=== PATIENT | female | born 1965 | race Caucasian/White ===

== ENCOUNTER 2017-06-25 09:47 | Emergency (ER) | payer OTHER ==
[~2017-06-25] VITALS: Ht 167.6 cm; Wt 77.1 kg
--- NOTE | 2017-06-25 09:58 | NUR ---
PRESENTS SELF TO ED FOR RUQ ABDOMINAL PAIN, CONSTANT, RADIATING TO LOWER BACK X 2 DAYS WORST TODAY. PATIENT DENIES VOMITTING, ADMITTED NAUSEA. APPEARS IN NO APPARENT DISTRESS, RESPIRATION EVEN AND UNLABORED. SKIN IS WARM TO TOUCH AND NON DIAPHORETIC. PATIENT IS AFEBRILE. VSS
--- NOTE | 2017-06-25 10:01 | NUR ---
MD BOLANOS AT BEDSIDE
[2017-06-25] MEDS ORDERED: KETOROLAC TROMETHAMINE 15 MG/ML VIAL ONE ×2 (10:07→12:53)
[2017-06-25] MEDS ORDERED: ONDANSETRON HCL/PF 4 MG/2 ML VIAL ONE (10:07)
--- NOTE | 2017-06-25 10:17 | NUR ---
IV ACCESSED TO LAC 20.BLOOD SAMPLE SENT TO LAB
--- NOTE | 2017-06-25 10:17 | NUR ---
URINE SAMPLE COLLECTED
[2017-06-25 10:19] LABS: BASOPHILS % (AUTO) 0.3 % (0.0-2.0); EOSINOPHILS % (AUTO) 0.6 % (0.0-6.0); HEMATOCRIT 43 % (33-45); HEMOGLOBIN 14.1 g/dL (11.5-14.8); LYMPHOCYTES # (AUTO) 2.2 /CMM (0.8-4.8); MEAN CORPUSCULAR HEMOGLOBIN 28 PG (26.0-33.0); MEAN CORPUSCULAR HGB CONC 33 g/dl (31.0-36.0); MEAN CORPUSCULAR VOLUME 84 fL (82-100); MONOCYTES # (AUTO) 0.6 /CMM (0.1-1.30); MONOCYTES % (AUTO) 6.6 % (2.0-12.0); NEUTROPHILS # (AUTO) 5.6 /CMM (1.8-8.9); NEUTROPHILS % (AUTO) 66.5 % (43.0-81.0); PLATELET COUNT (AUTO) 273 /CMM (150-450); RDW COEFFICIENT OF VARIATION 13.8 (11.5-15.0); RED BLOOD CELL COUNT(AUTO) 5.09 MIL/uL (4.0-5.2); WHITE BLOOD COUNT (AUTO) 8.4 K/uL (4.3-11.0)
[2017-06-25 10:21] LABS: APPEARANCE,URINE SL CLOUDY (CLEAR); BILIRUBIN,URINE 1+ (NEGATIVE); BLOOD, URINE NEGATIVE Ery/uL (NEGATIVE); COLOR,URINE YELLOW (YELLOW); KETONES,URINE NEGATIVE (NEGATIVE); LEUKOCYTE ESTERASE ,URINE NEGATIVE (NEGATIVE); NITRITE, URINE NEGATIVE (NEGATIVE); PROTEIN,URINE NEGATIVE (NEGATIVE); UGLUCOSE NEGATIVE (NEGATIVE); UROBILINOGEN,URINE 0.2 EU/dL (0.2)
[2017-06-25 10:27] LABS: CREATININE 0.8 mg/dL (0.6-1.3); POTASSIUM 4.2 mmol/L (3.5-5.1)
[2017-06-25 10:30] LABS: BACTERIA,URINE None seen /HPF (None Seen); RBC,URINE 0-2 /HPF (0-2); SQUAMOUS EPITHELIAL CELL,UR Few /HPF (None Seen); WBC,URINE 0-2 /HPF (0-3)
[2017-06-25] MEDS ORDERED: ONDANSETRON HCL/PF 4 MG/2 ML VIAL IVP ONE (10:30)
[2017-06-25] MEDS ORDERED: IV NS 0.9% 1,000 ML BAG IV ONE (10:30)
[2017-06-25] MEDS ORDERED: KETOROLAC TROMETHAMINE INJ 30 MG/ML VIAL IV ONE ×2 (10:30→13:00)
[2017-06-25 10:31] LABS: URIC ACID CRYSTALS,URINE Rare /HPF (None Seen)
[2017-06-25 10:35] LABS: ALBUMIN 4.3 g/dL (3.4-5.0); BILIRUBIN,TOTAL 0.3 mg/dL (0.2-1.0); TOTAL PROTEIN, SERUM 7.8 g/dL (6.4-8.2)
[2017-06-25 13:01] VITALS: BP 128/56
--- NOTE | 2017-06-25 13:01 | NUR ---
Patient discharged to home in stable condition. Written and verbal after care instructions given. Patient verbalizes understanding of instruction.IV removed. Catheter intact and site benign. Pressure and 4x4 applied to site. No bleeding noted.
== END 2017-06-25 13:02 | disposition home or self-care (01) ==
LOC: ER 09:49
DX: K80.50 Calculus of bile duct without cholangitis or cholecystitis without obstruction (principal); Z88.5 Allergy status to narcotic agent; Z88.1 Allergy status to other antibiotic agents
CPT/HCPCS: 36415; 76705-TC; 80048-TC; 80076-TC; 81000-TC; 83690-TC; 85025-TC; A4606; J1885; J2405; J7030; Z7610

== ENCOUNTER 2021-11-27 12:32 | Inpatient (IN) | payer OTHER ==
[~2021-11-27] VITALS: Ht 160 cm; Wt 90.4 kg
--- NOTE | 2021-11-27 12:42 | NUR ---
BIBRA 889 FROM HOME C/O WORSENING BODY PAIN AND DIARRHEA. +COVID 11/18/21. THE PATIENT IS ALERT AND ORIENTED X3. DENIES SOB. RESPIRATION REGULAR AND UNLABORED. WILL CONTINUE TO MONITOR THE PATIENT.
[2021-11-27] MEDS ORDERED: ONDANSETRON HCL/PF 4 MG/2 ML VIAL IVP ONE (13:00)
[2021-11-27] MEDS ORDERED: IV NS 0.9% 1,000 ML BAG IV ONE (13:00)
[2021-11-27] MEDS ORDERED: ONDANSETRON HCL/PF 4 MG/2 ML VIAL ONE (13:10)
--- NOTE | 2021-11-27 13:13 | NUR ---
JUNIOR ART DIRECTOR AT THE BEDSIDE
--- NOTE | 2021-11-27 13:13 | NUR ---
IV LINE IS ESTABLISHED, BLOOD SPECIMEN COLLECTED AND SENT TO THE LAB. THE LINE IS SALINE LOCKED.
[2021-11-27 13:39] LABS: BASOPHILS % (AUTO) 0.1 % (0.0-2.0); HEMATOCRIT 45 % (33-45); HEMOGLOBIN 14.9 g/dL (11.5-14.8); LYMPHOCYTES # (AUTO) 1.1 K/uL (0.8-4.8); LYMPHOCYTES % (AUTO) 9.7 % (20.0-44.0); MEAN CORPUSCULAR HGB CONC 33 g/dl (31.0-36.0); MEAN CORPUSCULAR VOLUME 90 fL (82-100); MONOCYTES # (AUTO) 0.9 K/uL (0.1-1.30); MONOCYTES % (AUTO) 8.3 % (2.0-12.0); NEUTROPHILS # (AUTO) 8.9 K/uL (1.8-8.9); NEUTROPHILS % (AUTO) 81.9 % (43.0-81.0); PLATELET COUNT (AUTO) 262 K/uL (150-450); RED BLOOD CELL COUNT(AUTO) 4.99 MIL/uL (4.0-5.2); WHITE BLOOD COUNT (AUTO) 10.9 K/uL (4.3-11.0)
[2021-11-27 13:52] LABS: ALANINE AMINOTRANSFERASE 35 U/L (12-78); ALBUMIN 3.5 g/dL (3.4-5.0); ALKALINE PHOSPHATASE 101 U/L (46-116); ASPARTATE AMINOTRANSFERASE 18 U/L (15-37); BILIRUBIN,DIRECT 0.2 mg/dL (0.0-0.2); BILIRUBIN,TOTAL 0.5 mg/dL (0.2-1.0); CALCIUM, SERUM 9.1 mg/dL (8.5-10.1); CARBON DIOXIDE 22 mmol/L (21-32); CHLORIDE 100 mmol/L (98-107); CREATININE 1.1 mg/dL (0.6-1.3); GLUCOSE 110 mg/dL (74-106); LIPASE 55 U/L (73-393); POTASSIUM 3.1 mmol/L (3.5-5.1); SODIUM SERUM 136 mmol/L (136-145); TOTAL PROTEIN, SERUM 8.3 g/dL (6.4-8.2); UREA NITROGEN, BLOOD 17 mg/dL (7-18)
--- NOTE | 2021-11-27 14:01 | NUR ---
URINE COLLECTED AND SENT TO LAB
[2021-11-27 14:22] LABS: BILIRUBIN,URINE SMALL (NEGATIVE); COLOR,URINE YELLOW (YELLOW); LEUKOCYTE ESTERASE ,URINE TRACE (NEGATIVE); NITRITE, URINE NEGATIVE (NEGATIVE); PROTEIN,URINE 30 mg/dl (NEGATIVE); UGLUCOSE NEGATIVE (NEGATIVE); UROBILINOGEN,URINE 0.2 EU/dL (0.2)
[2021-11-27 14:25] LABS: BACTERIA,URINE Few /HPF (None Seen); SQUAMOUS EPITHELIAL CELL,UR Few /HPF (None Seen)
[2021-11-27] MEDS ORDERED: POTASSIUM CHLORIDE 20 MEQ TAB.PRT.SR PO ONE ×2 (14:28→14:30)
[2021-11-27] MEDS ORDERED: KETOROLAC TROMETHAMINE INJ 30 MG/ML VIAL IV ONE (15:30)
[2021-11-27] MEDS ORDERED: PIPERACILLIN /TAZOBACTAM 3.375 G in IV D5W 50 ML IV ONE (15:30)
[2021-11-27] MEDS ORDERED: KETOROLAC TROMETHAMINE INJ 30 MG/ML VIAL ONE (15:39)
--- NOTE | 2021-11-27 16:42 | NUR ---
COVID ANTIGEN SWAB DONE AND SENT TO THE LAB
[2021-11-27] MEDS ORDERED: MORPHINE SULFATE INJ 2 MG/ML DISP.SYRIN IV PRN (17:30)
[2021-11-27] MEDS ORDERED: MAGNESIUM HYDROXIDE 30 ML UDC PO PRN (17:30)
[2021-11-27] MEDS ORDERED: LORAZEPAM INJ 2 MG/ML VIAL IV PRN (17:30)
[2021-11-27] MEDS ORDERED: Z GUARD REMEDY 4 OZ OINT TP PRN (17:30)
[2021-11-27 18:05] LABS: FERRITIN 410 ng/mL (8-388)
--- NOTE | 2021-11-27 18:30 | NUR ---
admiting office is made aware to the patient in transition
--- NOTE | 2021-11-27 18:45 | NUR ---
ROOM 200
[2021-11-27] MEDS: POTASSIUM CL. PREMIX PERIPHER. 50 ML IV SCH ×4 (19:00→22:54)
[2021-11-27] MEDS: PANTOPRAZOLE 40 MG VIAL IV SCH (19:00)
[2021-11-27] MEDS ORDERED: POTASSIUM CL. PREMIX PERIPHER. 50 ML ONE (19:07)
[2021-11-27] MEDS ORDERED: PANTOPRAZOLE 40 MG VIAL ONE (19:07)
[2021-11-27] MEDS: IV NS 0.9% 1,000 ML IV PRN (19:18)
--- NOTE | 2021-11-27 19:46 | NUR ---
REPORT GIVENT TO MICAH
--- NOTE | 2021-11-27 19:58 | NUR ---
TRANSFERRED TO 200 IN STABLE CONDITION
[2021-11-27 20:10] VITALS: BP 120/78
[2021-11-27] MEDS: ENOXAPARIN SODIUM 40 MG/0.4 ML DISP.SYRIN SQ SCH (21:04)
[2021-11-27] MEDS ORDERED: ACETAMINOPHEN 650 MG/SUPP.RECT RC PRN (23:30)
[2021-11-27] MEDS: PIPERACILLIN /TAZOBACTAM 3.375 G in IV D5W 50 ML IV SCH (23:54)
[2021-11-28] MEDS ORDERED: KETOROLAC TROMETHAMINE INJ 30 MG/ML VIAL ONE (00:04)
[2021-11-28] MEDS: KETOROLAC TROMETHAMINE INJ 30 MG/ML VIAL IV PRN ×3 (00:46→20:40)
[2021-11-28] MEDS: PIPERACILLIN /TAZOBACTAM 3.375 G in IV D5W 50 ML IV SCH ×4 (04:18→20:40)
--- NOTE | 2021-11-28 06:50 | NUR ---
RN CLOSING NOTES Patient A&Ox4. Resting in bed at this time. No signs of distress. No covid symptoms. But pt. did c/o abd pain overnight relieved by PRN toradol and pt. still having loose BMs.
[2021-11-28 07:47] LABS: BASOPHILS % (AUTO) 0.1 % (0.0-2.0); EOSINOPHILS % (AUTO) 0.1 % (0.0-6.0); HEMATOCRIT 40 % (33-45); LYMPHOCYTES # (AUTO) 1.3 K/uL (0.8-4.8); LYMPHOCYTES % (AUTO) 18.3 % (20.0-44.0); MEAN CORPUSCULAR HGB CONC 33 g/dl (31.0-36.0); MEAN CORPUSCULAR VOLUME 91 fL (82-100); MONOCYTES # (AUTO) 0.8 K/uL (0.1-1.30); MONOCYTES % (AUTO) 11.2 % (2.0-12.0); NEUTROPHILS # (AUTO) 5.1 K/uL (1.8-8.9); NEUTROPHILS % (AUTO) 70.3 % (43.0-81.0); PLATELET COUNT (AUTO) 276 K/uL (150-450); RED BLOOD CELL COUNT(AUTO) 4.39 MIL/uL (4.0-5.2); WHITE BLOOD COUNT (AUTO) 7.2 K/uL (4.3-11.0)
[2021-11-28 08:09] LABS: CREATININE 1.1 mg/dL (0.6-1.3); MAGNESIUM 2.3 mg/dL (1.8-2.4); PHOSPHORUS 1.6 mg/dL (2.5-4.9); POTASSIUM 3.5 mmol/L (3.5-5.1)
[2021-11-28] MEDS: PANTOPRAZOLE 40 MG VIAL IV SCH (08:14)
[2021-11-28 09:06] LABS: THYROID STIMULATING HORMONE 1.215 uIU/mL (0.358-3.74)
[2021-11-28] MEDS ORDERED: NITR100C15 PO (10:10)
[2021-11-28] MEDS ORDERED: CHOL100062 PO (10:17)
[2021-11-28] MEDS ORDERED: ACET-868 PO (10:17)
[2021-11-28] MEDS ORDERED: ZINC50TA65 PO (10:17)
[2021-11-28] MEDS ORDERED: MULT-447 PO (10:17)
[2021-11-28] MEDS ORDERED: ONDA4TAB11 SL (10:17)
[2021-11-28] MEDS ORDERED: ASCO-352 PO (10:17)
[2021-11-28] MEDS: IV NS 0.9% 1,000 ML IV PRN (11:23)
[2021-11-28] MEDS: POTASSIUM PHOSPHATE MM 7.5 MMOL in IV NS 0.9% 100 ML IV SCH ×2 (11:23→13:44)
--- NOTE | 2021-11-28 11:25 | NUR ---
RN NOTES PHLEB TECH AT BEDSIDE TO DRAW BLOOD.
--- NOTE | 2021-11-28 16:15 | NUR ---
RN NOTES RECEIVED CALL FROM MARIANNA, PATIENT'S MOTHER; PATIENT CURRENTLY SLEEPING AT THIS TIME. WILL CALL AGAIN LATER.
--- NOTE | 2021-11-28 17:52 | NUR ---
RN NOTES PATIENT IS AMBULATORY W/ STEADY GAIT, ABLE TO GO TO THE BATHROOM W/ SBA. IVF CONTINUOUS. BREATHING EVEN AND UNLABORED, TOLERATING ROOM AIR. IV ATB ADMINISTERED ORDERED. SAFETY MEASURES MAINTAINED.
--- NOTE | 2021-11-28 19:10 | NUR ---
MS/RN OPENING NOTE RECEIVED PATIENT RESTING IN BED. AWAKE, ALERT AND ORIENTED X 4. ABLE TO MAKE NEEDS KNOWN. DENIES PAIN AT THIS TIME. CONTINUES ON ROOM SHARRON WITH NO S/SX OF RESPIRATORY DISTRESS NOTED. IV ACCESS TO RIGHT AC #18G INTACT AND PATENT. CONTINUES ON IVF AND IV ABX. CONTINUES ON NPO STATUS FOR BOWEL REST. DENIES NAUSEA OR VOMITING AT THIS TIME. CALL LIGHT WITHIN REACH. ASPIRATION, FALL AND SAFETY PRECAUTIONS MAINTAINED. WILL CONTINUE TO MONITOR.
[2021-11-28 20:00] VITALS: BP 108/58
[2021-11-28] MEDS: ONDANSETRON HCL/PF 4 MG/2 ML VIAL IVP PRN (20:40)
[2021-11-28] MEDS: ENOXAPARIN SODIUM 40 MG/0.4 ML DISP.SYRIN SQ SCH (20:48)
[2021-11-29] VITALS: BP 109/62
[2021-11-29] MEDS: PIPERACILLIN /TAZOBACTAM 3.375 G in IV D5W 50 ML IV SCH ×4 (02:43→20:24)
[2021-11-29] MEDS: KETOROLAC TROMETHAMINE INJ 30 MG/ML VIAL IV PRN ×3 (03:00→21:56)
--- NOTE | 2021-11-29 03:30 | NUR ---
MS/RN NOTE PATIENTS IV INFILTRATED TO RIGHT AC. IV REMOVED WITH TIP INTACT. PRESSURE DRESSING APPLIED. ATTEMPTED IV PLACEMENT X 3. WILL HAVE 2ND NURSE ATTEMPT. WASTED TORADOL DOSE AND UNDONE IN EMAR D/T NO IV ACCESS AT THIS TIME.
--- NOTE | 2021-11-29 04:45 | NUR ---
MS/RN NOTE ATTEMPTED MULTIPLE PERIPHERAL IV PLACEMENTS X MULTIPLE NURSES. ALL UNSUCCESSFUL. PLACED CALL TO [facility] TO SPEAK WITH ON-CALL. AWAITING CALL BACK.
--- NOTE | 2021-11-29 05:15 | NUR ---
MS/RN NOTE BACK WINDER MD GONZALES RETURNED CALL WITH NEW ORDERS FOR MIDLINE PLACEMENT AND CHANGE ROUTE OF ADMINISTRATION OF TORADOL FROM IV TO IM. ORDERS INPUTTED AND CARRIED OUT. NOTIFIED NURSING TREE CLIMBER ZABRINA MORENO OF MIDLINE PLACEMENT.
[2021-11-29] MEDS ORDERED: KETOROLAC TROMETHAMINE INJ 30 MG/ML VIAL IM PRN (05:21)
--- NOTE | 2021-11-29 06:10 | NUR ---
MS/RN CLOSING NOTE PATIENT CURRENTLY SLEEPING IN BED. ALERT AND ORIENTED X 4. ABLE TO MAKE NEEDS KNOWN. DENIES PAIN AT THIS TIME. CONTINUES ON ROOM AIR WITH NO S/SX OF RESPIRATORY DISTRESS NOTED. NO IV ACCESS AT THIS TIME - MD AWARE WITH ORDER FOR MIDLINE IN PLACE. CONTINUES ON ABX. CONTINUES ON NPO STATUS FOR BOWEL REST. DENIES NAUSEA OR VOMITING AT THIS TIME. CALL LIGHT WITHIN REACH. ASPIRATION, FALL AND SAFETY PRECAUTIONS MAINTAINED. WILL ENDORSE PLAN OF CARE TO ONCOMING SHIFT.
[2021-11-29 08:00] VITALS: BP 104/48
--- NOTE | 2021-11-29 08:02 | NUR ---
MS RN OPENING NOTE RECEIVED PATIENT IN BED, ASLEEP. PATIENT ON ROOM AIR WITH NO S/SX OF RESPIRATORY DISTRESS NOTED. NO IV ACCESS AT THIS TIME - MD AWARE WITH ORDER FOR MIDLINE IN PLACE. ON NPO STATUS FOR BOWEL REST. CALL LIGHT WITHIN REACH. ASPIRATION, FALL AND SAFETY PRECAUTIONS MAINTAINED. WILL CONTINUE TO MONITOR PATIENT.
[2021-11-29] MEDS: PANTOPRAZOLE 40 MG VIAL IV SCH (08:24)
[2021-11-29 09:44] LABS: BASOPHILS % (AUTO) 0.2 % (0.0-2.0); EOSINOPHILS % (AUTO) 0.2 % (0.0-6.0); HEMATOCRIT 40 % (33-45); HEMOGLOBIN 12.9 g/dL (11.5-14.8); LYMPHOCYTES # (AUTO) 1.1 K/uL (0.8-4.8); LYMPHOCYTES % (AUTO) 19.6 % (20.0-44.0); MEAN CORPUSCULAR HGB CONC 33 g/dl (31.0-36.0); MEAN CORPUSCULAR VOLUME 91 fL (82-100); MONOCYTES # (AUTO) 0.8 K/uL (0.1-1.30); MONOCYTES % (AUTO) 15.2 % (2.0-12.0); NEUTROPHILS # (AUTO) 3.6 K/uL (1.8-8.9); NEUTROPHILS % (AUTO) 64.8 % (43.0-81.0); PLATELET COUNT (AUTO) 293 K/uL (150-450); RED BLOOD CELL COUNT(AUTO) 4.35 MIL/uL (4.0-5.2); WHITE BLOOD COUNT (AUTO) 5.6 K/uL (4.3-11.0)
[2021-11-29 09:56] LABS: CALCIUM, SERUM 8.5 mg/dL (8.5-10.1); CREATININE 0.9 mg/dL (0.6-1.3); POTASSIUM 3.3 mmol/L (3.5-5.1)
[2021-11-29] MEDS ORDERED: VITAMINS A AND D 56.7 GM TUBE TP PRN (11:00)
[2021-11-29 12:00] VITALS: BP 111/74
[2021-11-29] MEDS: ONDANSETRON HCL/PF 4 MG/2 ML VIAL IVP PRN (12:59)
[2021-11-29 16:00] VITALS: BP 123/76
[2021-11-29] MEDS: ACETAMINOPHEN 325 MG TABLET PO PRN (17:28)
--- NOTE | 2021-11-29 17:28 | NUR ---
MS RN NOTES PATIENT COMPLAINING OF HEADACHE. PRN TYLENOL ADMINISTERED.
--- NOTE | 2021-11-29 19:28 | NUR ---
MS RN CLOSING NOTE PATIENT REMAINS IN BED, AWAKE, A/.O X4. PATIENT ON ROOM AIR WITH NO S/SX OF RESPIRATORY DISTRESS NOTED DURING SHIFT. R HAND IV ACCESS G # 20 AND COURTNEY MIDLINE PRESENT AND INTACT. ON CLEAR LIQUID DIET NOW. PAIN TREATED WITH PRN PAIN MEDICATION. SAFETY PRECAUTIONS IN PLACE; BED IN LOW POSITION AND LOCKED, RAILS UP X2, CALL LIGHT WITHIN REACH. WILL CONTINUE TO MONITOR PATIENT.
[2021-11-29] MEDS: ENOXAPARIN SODIUM 40 MG/0.4 ML DISP.SYRIN SQ SCH (20:28)
[2021-11-30] VITALS: BP 130/74
[2021-11-30] MEDS: PIPERACILLIN /TAZOBACTAM 3.375 G in IV D5W 50 ML IV SCH ×4 (02:01→20:40)
[2021-11-30 04:00] VITALS: BP 141/62
[2021-11-30] MEDS: MAG HYDROX/AL HYDROX/SIMETH 30 ML UDC PO PRN ×2 (04:25→17:15)
[2021-11-30 07:04] VITALS: BP 112/58
--- NOTE | 2021-11-30 07:23 | NUR ---
RN MS NOTE PATIENT NO SIGNIFICANT CHANGES DURING THE SHIFT, PAIN MANAGED WITH TORADOL IV. MAALOX GIVEN FOR ACID REFLUX. SAFETY MEASURES IMPLEMENTED. PATIENT ON RA, TOLERATING WELL. ALL NEEDS MET AND ATTENDED. ALL ORDERS CARRIED OT. ENDORSED TO DAY SHIFT NURSE FOR JUAN.
--- NOTE | 2021-11-30 07:30 | NUR ---
RN NOTE PATIENT RECEIVED IN BED, AWAKE, A/.O X4. PATIENT ON ROOM AIR WITH NO S/SX OF RESPIRATORY DISTRESS NOTED. IV ACCESS COURTNEY MIDLINE G18 PRESENT AND INTACT. ON CLEAR LIQUID DIET NOW. SAFETY PRECAUTIONS IN PLACE; BED IN LOW POSITION AND LOCKED, RAILS UP X2, CALL LIGHT WITHIN REACH. WILL CONTINUE TO MONITOR PATIENT.
[2021-11-30 08:00] VITALS: BP 145/78
[2021-11-30 08:46] LABS: BASOPHILS % (AUTO) 0.2 % (0.0-2.0); EOSINOPHILS % (AUTO) 0.3 % (0.0-6.0); HEMATOCRIT 38 % (33-45); HEMOGLOBIN 12.7 g/dL (11.5-14.8); LYMPHOCYTES # (AUTO) 1.2 K/uL (0.8-4.8); MEAN CORPUSCULAR HGB CONC 34 g/dl (31.0-36.0); MEAN CORPUSCULAR VOLUME 89 fL (82-100); MONOCYTES # (AUTO) 0.8 K/uL (0.1-1.30); MONOCYTES % (AUTO) 15.1 % (2.0-12.0); NEUTROPHILS # (AUTO) 3.3 K/uL (1.8-8.9); NEUTROPHILS % (AUTO) 61.4 % (43.0-81.0); PLATELET COUNT (AUTO) 312 K/uL (150-450); RED BLOOD CELL COUNT(AUTO) 4.26 MIL/uL (4.0-5.2); WHITE BLOOD COUNT (AUTO) 5.4 K/uL (4.3-11.0)
[2021-11-30 09:04] LABS: CALCIUM, SERUM 8.2 mg/dL (8.5-10.1); CREATININE 0.8 mg/dL (0.6-1.3); POTASSIUM 3.3 mmol/L (3.5-5.1)
[2021-11-30] MEDS: ONDANSETRON HCL/PF 4 MG/2 ML VIAL IVP PRN (09:33)
[2021-11-30] MEDS: PANTOPRAZOLE 40 MG VIAL IV SCH (09:33)
[2021-11-30] MEDS: KETOROLAC TROMETHAMINE INJ 30 MG/ML VIAL IV PRN ×2 (10:39→17:15)
[2021-11-30] MEDS: IV NS 0.9% 1,000 ML IV PRN (11:53)
[2021-11-30 12:00] VITALS: BP 119/68
[2021-11-30] MEDS ORDERED: POTASSIUM CHLORIDE 20 MEQ POWDER PACKET PO ONE (12:00)
--- NOTE | 2021-11-30 12:00 | NUR ---
RN NOTE REPORT LOW POTASSIUM 3.3, TO MD LESLIE ATWOOD. MD ORDER THE POTASSIUM TO REPLACED AND PEARL THE DIET TO SOFT DIET. POTASSIUM GIVEN TO PT.
[2021-11-30 15:22] LABS: EOSINOPHILS % (MANUAL) 2 % (0-4); LYMPHOCYTES % (MANUAL) 22 % (16-48); MONOCYTES % (MANUAL) 16 % (0-11.0); NEUTROPHILS % (MANUAL) 60 (42-76)
[2021-11-30 16:00] VITALS: BP 125/74
--- NOTE | 2021-11-30 17:10 | NUR ---
RN NOT PT A/OX4, COMPLAIN OF PAIN 8 OUT OF 10, AND DISCOMFORT,AND INDIGESTION AND BLOATING, PROVIDE TORADOL AND MAALOX. WILL CONTINUE CARE AND MONITOR.
--- NOTE | 2021-11-30 18:11 | NUR ---
MS RN CLOSING NOTE PATIENT REMAINS IN BED, AWAKE, A/.O X4. PATIENT ON ROOM AIR WITH NO S/SX OF RESPIRATORY DISTRESS NOTED DURING SHIFT. COURTNEY MIDLINE PRESENT 18G AND INTACT. ON SOFT DIET NOW. PAIN TREATED WITH PRN PAIN MEDICATION. SAFETY PRECAUTIONS IN PLACE; BED IN LOW POSITION AND LOCKED, RAILS UP X2, CALL LIGHT WITHIN REACH. WILL ENDORSED TO NOC SHIFT.
--- NOTE | 2021-11-30 19:30 | NUR ---
RN opening notes Pt is laying in bed comfortably watching TV. Pt is alert and orientedX4. Respiration is normal in room air. No SOB. No S/S of distress noted. COURTNEY midline is clean, intact and infuisng well NS@ 75 ml/hr. Safety precautions is maintained and call light is within reach. Will continue to monitor.
[2021-11-30] MEDS: ENOXAPARIN SODIUM 40 MG/0.4 ML DISP.SYRIN SQ SCH (21:20)
[2021-12-01] MEDS: ACETAMINOPHEN 325 MG TABLET PO PRN (00:49)
--- NOTE | 2021-12-01 00:55 | NUR ---
RN notes Pt is complaining of headache and requesting tylenol. administered tylenol 650 mg/po/prn as ordered for headache.
[2021-12-01] MEDS: PIPERACILLIN /TAZOBACTAM 3.375 G in IV D5W 50 ML IV SCH ×4 (02:25→20:27)
[2021-12-01 04:00] VITALS: BP 143/81
[2021-12-01 06:22] LABS: BASOPHILS % (AUTO) 0.4 % (0.0-2.0); EOSINOPHILS % (AUTO) 0.2 % (0.0-6.0); HEMATOCRIT 36 % (33-45); HEMOGLOBIN 12.1 g/dL (11.5-14.8); LYMPHOCYTES # (AUTO) 1.4 K/uL (0.8-4.8); LYMPHOCYTES % (AUTO) 24.7 % (20.0-44.0); MEAN CORPUSCULAR HGB CONC 33 g/dl (31.0-36.0); MEAN CORPUSCULAR VOLUME 89 fL (82-100); MONOCYTES # (AUTO) 0.8 K/uL (0.1-1.30); MONOCYTES % (AUTO) 13.9 % (2.0-12.0); NEUTROPHILS # (AUTO) 3.5 K/uL (1.8-8.9); NEUTROPHILS % (AUTO) 60.8 % (43.0-81.0); PLATELET COUNT (AUTO) 285 K/uL (150-450); RED BLOOD CELL COUNT(AUTO) 4.07 MIL/uL (4.0-5.2); WHITE BLOOD COUNT (AUTO) 5.8 K/uL (4.3-11.0)
--- NOTE | 2021-12-01 06:30 | NUR ---
RN closing notes Pt is resting in bed comfortably. Pt is alert and orientedX4. Respiration is normal in room air. No SOB. No S/S of distress noted. COURTNEY midline is clean, intact and infuisng well NS@ 75 ml/hr. Routine meds were given as ordered. Kept Pt clean, dry and comfortable. All needs met and attended. Safety precautions is maintained and call light is within reach. Will endorse to am nurse for JUAN.
[2021-12-01 06:42] LABS: CALCIUM, SERUM 8.1 mg/dL (8.5-10.1); CREATININE 0.8 mg/dL (0.6-1.3); POTASSIUM 3.2 mmol/L (3.5-5.1)
--- NOTE | 2021-12-01 07:19 | NUR ---
RN OPENING NOTE- PT ASLEEP IN BED, EASILY AWAKENED, AOX4. MAKES NEEDS KNOWN, INTERACTIVE. DENIES PAIN AT THIS TIME. NS INFUSING AT 75/HR VIA MIDLINE COURTNEY. SIDE RAILS UP, CALL LIGHT IN REACH, MONITOR/ASSIST
[2021-12-01 08:00] VITALS: BP 143/76
[2021-12-01] MEDS: KETOROLAC TROMETHAMINE INJ 30 MG/ML VIAL IV PRN ×2 (08:31→22:12)
[2021-12-01] MEDS: PANTOPRAZOLE 40 MG VIAL IV SCH (08:31)
[2021-12-01] MEDS: IV NS 0.9% 1,000 ML IV PRN (08:38)
[2021-12-01] MEDS: POTASSIUM CHLORIDE 20 MEQ POWDER PACKET PO SCH ×2 (10:07→11:39)
--- NOTE | 2021-12-01 18:33 | NUR ---
RN CLOSING NOTE- PT AOX4, CALM, INTERACTIVE IN NO DISTRESS, DENIES PAIN. PO INTAKE GOOD, DRINKING FLUIDS, SLEPT QUIETLY AT TIMES THROUGH SHIFT. IVF INFUSING NS AT 75 HR VIA MIDLINE COURTNEY. SIDE RAILS UP, BED LOCKED, CALL LIGHT IN REACH, NEEDS ATTENDED
--- NOTE | 2021-12-01 19:30 | NUR ---
MS RN OPENING RECEIVED PATIENT IN BED. A/OX4. AMBULATING WITH STEADY GAITS IN THE RESTROOM. NO S/S OF APPARENT DISTRESS ON ROOM AIR. PAIN TOLERABLE FOR NOW. IV NS RUNNING AT 75CC/HR. SAFETY IN PLACE. ISOLATION PROTOCOL IN PLACE. WILL CONTINUE WITH PATIENT CARE PLAN.
[2021-12-01] MEDS: MAG HYDROX/AL HYDROX/SIMETH 30 ML UDC PO PRN (19:38)
[2021-12-01 20:00] VITALS: BP 128/75
[2021-12-01] MEDS: ENOXAPARIN SODIUM 40 MG/0.4 ML DISP.SYRIN SQ SCH (20:24)
[2021-12-02] MEDS: PIPERACILLIN /TAZOBACTAM 3.375 G in IV D5W 50 ML IV SCH ×4 (03:00→20:55)
[2021-12-02] MEDS: IV NS 0.9% 1,000 ML IV PRN (03:28)
[2021-12-02 06:50] LABS: CALCIUM, SERUM 8.3 mg/dL (8.5-10.1); CREATININE 0.7 mg/dL (0.6-1.3); POTASSIUM 3.2 mmol/L (3.5-5.1)
[2021-12-02] MEDS: PANTOPRAZOLE 40 MG TABLET.DR PO SCH (07:30)
--- NOTE | 2021-12-02 07:49 | NUR ---
MS RN CLOSING REPORT GIVEN TO EKWOK FOR CONTINUITY OF CARE.
[2021-12-02 08:00] VITALS: BP 167/90
--- NOTE | 2021-12-02 08:00 | NUR ---
ms rn received on bned, awake,alert,oriented x4,not in any form of distress, respirations even and unlabored,no sob noted,denies pain at this time, will monitor patient.
[2021-12-02] MEDS ORDERED: POTASSIUM CHLORIDE 20 MEQ TAB.PRT.SR PO ONE (09:30)
[2021-12-02] MEDS: KETOROLAC TROMETHAMINE INJ 30 MG/ML VIAL IV PRN ×2 (11:41→17:29)
--- NOTE | 2021-12-02 14:50 | NUR ---
ms rn patient went down for ct abscess drain.
[2021-12-02] MEDS ORDERED: NALOXONE PREFILLED SYRINGE 2 MG/2 ML SYRINGE IV ONE (15:30)
[2021-12-02] MEDS ORDERED: MIDAZOLAM HCL 5MG/ML VIAL 25 MG/5 ML VIAL IV ONE (15:30)
--- NOTE | 2021-12-02 17:00 | NUR ---
ms rn came back from procedure,w/ drain draining yellowish/reddish output, deneis pain at this time.
--- NOTE | 2021-12-02 18:52 | NUR ---
ms rn on bed, no distress noted.
--- NOTE | 2021-12-02 19:00 | NUR ---
MS RN OPENING NOTE PT A/O X4 RESTING COMFORTABLY IN BED. SAFETY PRECAUTIONS IN PLACE. NO C/O PAIN AT THIS MOMENT. WILL CONTINUE WITH PLAN OF CARE.
[2021-12-02 20:00] VITALS: BP 119/77
[2021-12-02] MEDS: ENOXAPARIN SODIUM 40 MG/0.4 ML DISP.SYRIN SQ SCH (21:22)
[2021-12-02] MEDS: MAG HYDROX/AL HYDROX/SIMETH 30 ML UDC PO PRN (21:37)
[2021-12-03] MEDS: KETOROLAC TROMETHAMINE INJ 30 MG/ML VIAL IV PRN ×3 (02:10→18:30)
[2021-12-03] MEDS: ONDANSETRON HCL/PF 4 MG/2 ML VIAL IVP PRN ×2 (02:12→18:14)
[2021-12-03] MEDS: PIPERACILLIN /TAZOBACTAM 3.375 G in IV D5W 50 ML IV SCH ×4 (03:42→21:49)
[2021-12-03] MEDS: IV NS 0.9% 1,000 ML IV PRN (03:42)
--- NOTE | 2021-12-03 06:30 | NUR ---
MS RN CLOSING NOTE PT RESTING COMFORTABLY IN BED. NEEDS MET AND MEDICATIONS ADMINISTERED. WILL ENDORSE TO ONCOMING RN FOR JUAN.
--- NOTE | 2021-12-03 07:13 | NUR ---
MS RN OPENING NOTE RECEIVED PATIENT IN BED, ASLEEP. PATIENT IS BREATHING EVENLY AND NONLABORED ON ROOM AIR WITH NO S/SX OF RESPIRATORY DISTRESS NOTED. IV ACCESS TO COURTNEY MIDLINE RUNNING NS @ 75ML/HR. DENIES PAIN OR DISCOMFORT AT THIS TIME. SAFETY MEASURES IN PLACE CALL LIGHT WITHIN REACH. ASPIRATION, FALL AND SAFETY PRECAUTIONS MAINTAINED. WILL CONTINUE TO MONITOR
[2021-12-03] MEDS: PANTOPRAZOLE 40 MG TABLET.DR PO SCH (07:40)
[2021-12-03] MEDS: ACETAMINOPHEN 325 MG TABLET PO PRN ×2 (07:40→22:28)
[2021-12-03 08:00] VITALS: BP 134/73
[2021-12-03] MEDS ORDERED: HYDROMORPHONE 1 MG/1 ML DISP.SYRIN IV PRN (11:30)
--- NOTE | 2021-12-03 18:38 | NUR ---
MS RN CLOSING NOTE PATIENT IN BED, ASLEEP. PATIENT IS BREATHING EVENLY AND NONLABORED ON ROOM AIR WITH NO S/SX OF RESPIRATORY DISTRESS NOTED. IV ACCESS TO COURTNEY MIDLINE RUNNING NS @ 75ML/HR. DENIES PAIN OR DISCOMFORT AT THIS TIME. ALL MEDICATIONS GIVEN ORDERED, PAIN MEDICATION GIVEN NEEDED VITALS MAINTAINED WNL. NO DRAINAGE NOTED. SAFETY MEASURES IN PLACE CALL LIGHT WITHIN REACH. ASPIRATION, FALL AND SAFETY PRECAUTIONS MAINTAINED. BED LOW LOCKED AND CALL LIGHT WITHIN REACH WILL ENDORSE TO ONCOMING SHIFT
[2021-12-03 20:00] VITALS: BP 134/75
[2021-12-03] MEDS: ENOXAPARIN SODIUM 40 MG/0.4 ML DISP.SYRIN SQ SCH (21:48)
[2021-12-03] MEDS: MAG HYDROX/AL HYDROX/SIMETH 30 ML UDC PO PRN (21:49)
[2021-12-04] MEDS: PIPERACILLIN /TAZOBACTAM 3.375 G in IV D5W 50 ML IV SCH ×4 (03:18→20:52)
[2021-12-04 04:00] VITALS: BP 133/61
[2021-12-04] MEDS: KETOROLAC TROMETHAMINE INJ 30 MG/ML VIAL IV PRN ×2 (05:05→22:09)
--- NOTE | 2021-12-04 06:30 | NUR ---
MS RN CLOSING NOTE PT RESTING COMFORTABLY IN BED. NEEDS MET AND MEDICATIONS ADMINISTERED. WILL ENDORSE TO ONCOMING RN FOR JUAN
[2021-12-04 06:42] LABS: BASOPHILS % (AUTO) 0.3 % (0.0-2.0); EOSINOPHILS % (AUTO) 1.6 % (0.0-6.0); HEMATOCRIT 35 % (33-45); HEMOGLOBIN 11.7 g/dL (11.5-14.8); LYMPHOCYTES # (AUTO) 1.7 K/uL (0.8-4.8); LYMPHOCYTES % (AUTO) 32.2 % (20.0-44.0); MEAN CORPUSCULAR HGB CONC 33 g/dl (31.0-36.0); MEAN CORPUSCULAR VOLUME 91 fL (82-100); MONOCYTES # (AUTO) 0.7 K/uL (0.1-1.30); MONOCYTES % (AUTO) 13.2 % (2.0-12.0); NEUTROPHILS # (AUTO) 2.8 K/uL (1.8-8.9); NEUTROPHILS % (AUTO) 52.7 % (43.0-81.0); PLATELET COUNT (AUTO) 321 K/uL (150-450); RED BLOOD CELL COUNT(AUTO) 3.85 MIL/uL (4.0-5.2); WHITE BLOOD COUNT (AUTO) 5.3 K/uL (4.3-11.0)
[2021-12-04 07:20] LABS: CALCIUM, SERUM 8.3 mg/dL (8.5-10.1); CREATININE 0.8 mg/dL (0.6-1.3); POTASSIUM 3.1 mmol/L (3.5-5.1)
[2021-12-04 08:00] VITALS: BP 139/72
--- NOTE | 2021-12-04 08:00 | NUR ---
RN NOTE PT IN COMFORTABLE POSITION. NO DISTRESS NOTED. IV PRESENT AND FLUSHES WELL. WILL CONTINUE TO MONITOR.
[2021-12-04] MEDS: PANTOPRAZOLE 40 MG TABLET.DR PO SCH (08:35)
[2021-12-04] MEDS: MAG HYDROX/AL HYDROX/SIMETH 30 ML UDC PO PRN (08:35)
[2021-12-04] MEDS ORDERED: SIMETHICONE SUSP 40 MG/0.6 ML BOTTLE PO PRN (09:00)
[2021-12-04] MEDS: SIMETHICONE 80 MG TAB.CHEW PO PRN ×2 (09:33→14:13)
[2021-12-04] MEDS: POTASSIUM CHLORIDE 20 MEQ TAB.PRT.SR PO SCH (11:21)
[2021-12-04] MEDS: ACETAMINOPHEN 325 MG TABLET PO PRN (13:05)
[2021-12-04] MEDS: ONDANSETRON HCL/PF 4 MG/2 ML VIAL IVP PRN (14:12)
[2021-12-04 16:00] VITALS: BP 115/64
--- NOTE | 2021-12-04 18:58 | NUR ---
RN NOTE PT IN COMFORTABLE POSITION. NO DISTRESS NOTED. IV PRESENT AND FLUSHES WELL. AMBULATES WITH WALKER ASSIST. WILL ENDORSE TO NIGHT RN FOR JUAN.
--- NOTE | 2021-12-04 19:30 | NUR ---
MS RN OPENING NOTE RECEIVED PATIENT AWAKE IN BED. PATIENT IS BREATHING EVENLY AND NONLABORED. PT STABLE ON ROOM AIR. NO SOB OR S/SX OF RESPIRATORY DISTRESS NOTED. IV ACCESS TO COURTNEY MIDLINE RUNNING NS @ 75ML/HR. DENIES PAIN OR DISCOMFORT AT THIS TIME. SAFETY PRECAUTIONS IN PLACE. BED IN LOWEST LOCKED POSITION, HOB ELEVATED, SIDE RAILS UP X2, AND CALL LIGHT AND TABLE WITHIN REACH. WILL CONTINUE WITH PLAN OF CARE.
[2021-12-04 20:00] VITALS: BP 126/67
[2021-12-04] MEDS: ENOXAPARIN SODIUM 40 MG/0.4 ML DISP.SYRIN SQ SCH (20:50)
--- NOTE | 2021-12-04 22:09 | NUR ---
RN NOTE PT COMPLAINED OF PAIN 6/10 IN THE ABDOMEN. ADMINISTERED TORADOL 15 MG FOR MODERATE PAIN ORDERED. VSS. WILL CONTINUE TO MONITOR.
[2021-12-05] MEDS: PIPERACILLIN /TAZOBACTAM 3.375 G in IV D5W 50 ML IV SCH ×4 (03:12→20:04)
[2021-12-05 04:00] VITALS: BP 133/69
--- NOTE | 2021-12-05 06:40 | NUR ---
MS RN CLOSING NOTE PATIENT AWAKE IN BED. PATIENT IS BREATHING EVENLY AND NONLABORED. PT STABLE ON ROOM AIR. NO SOB OR S/SX OF RESPIRATORY DISTRESS NOTED. IV ACCESS TO COURTNEY MIDLINE RUNNING NS @ 75ML/HR. DENIES PAIN OR DISCOMFORT AT THIS TIME. ALL NEEDS MET AT THIS TIME. ALL DUE MEDS GIVEN. SAFETY PRECAUTIONS IN PLACE AT ALL TIMES. BED IN LOWEST LOCKED POSITION, HOB ELEVATED, SIDE RAILS UP X2, AND CALL LIGHT AND TABLE WITHIN REACH. WILL ENDORSE TO ONCOMING NURSE FOR JUAN.
[2021-12-05] MEDS: IV NS 0.9% 1,000 ML IV PRN (07:04)
[2021-12-05] MEDS: PANTOPRAZOLE 40 MG TABLET.DR PO SCH (07:22)
[2021-12-05] MEDS: KETOROLAC TROMETHAMINE INJ 30 MG/ML VIAL IV PRN ×4 (07:23→23:14)
[2021-12-05 08:00] VITALS: BP 130/73
[2021-12-05] MEDS: POTASSIUM CHLORIDE 20 MEQ TAB.PRT.SR PO SCH (08:01)
[2021-12-05] MEDS: ONDANSETRON HCL/PF 4 MG/2 ML VIAL IVP PRN ×2 (14:17→22:09)
[2021-12-05] MEDS: SIMETHICONE 80 MG TAB.CHEW PO PRN ×2 (14:17→22:06)
--- NOTE | 2021-12-05 19:18 | NUR ---
RN OPENING NOTES RECEIVED PT IN BED, AWAKE. AOx4, ABLE TO MAKE NEEDS KNOWN. ON RA AND TOLERATING WELL. NO SOB NOTED. NO S/SX OF RESPIRATORY DISTRESS NOTED. IV ACCES IN COURTNEY MIDLINE RUNNING NS @ 75 ML/HR. SAFETY PRECAUTIONS IN PLACE: BED IN LOWEST, LOCKED POSITION, BRAKES ON, AND SIDERAILS UPx2. TABLE AND CALL LIGHT WITHIN REACH. WILL CONTINUE TO MONITOR.
[2021-12-05 20:00] VITALS: BP 127/61
[2021-12-05] MEDS: ENOXAPARIN SODIUM 40 MG/0.4 ML DISP.SYRIN SQ SCH (20:03)
[2021-12-06] MEDS: PIPERACILLIN /TAZOBACTAM 3.375 G in IV D5W 50 ML IV SCH ×2 (02:40→07:56)
[2021-12-06] MEDS: ACETAMINOPHEN 325 MG TABLET PO PRN (05:24)
[2021-12-06] MEDS: PANTOPRAZOLE 40 MG TABLET.DR PO SCH (06:40)
--- NOTE | 2021-12-06 06:56 | NUR ---
RN CLOSING NOTES PT IN BED, ASLEEP, AWAKENS TO VERBAL STIMULI. AOx4, ABLE TO MAKE NEEDS KNOWN. ON RA AND TOLERATING WELL. NO SOB NOTED. NO S/SX OF RESPIRATORY DISTRESS NOTED. IV ACCES IN COURTNEY MIDLINE RUNNING NS @ 75 ML/HR. ALL NEEDS MET. PT KEPT CLEAN AND DRY. TREATED PAIN THROUGHOUT SHIFT. SAFETY PRECAUTIONS IN PLACE: BED IN LOWEST, LOCKED POSITION, BRAKES ON, AND SIDERAILS UPx2. TABLE AND CALL LIGHT WITHIN REACH. WILL ENDORSE TO ONCOMING SHIFT FOR JUAN.
--- NOTE | 2021-12-06 07:30 | NUR ---
PT RECEIVED RESTING COMFORTABLY IN BED. NO S/S OR C/O PAIN OR DISTRESS NOTED. SIDE RAILS UP X2, CALL LIGHT LEFT WITHIN REACH. WILL CONTINUE PLAN OF CARE.
[2021-12-06] MEDS: KETOROLAC TROMETHAMINE INJ 30 MG/ML VIAL IV PRN ×2 (07:55→18:45)
[2021-12-06] MEDS: ONDANSETRON HCL/PF 4 MG/2 ML VIAL IVP PRN ×2 (07:56→18:45)
[2021-12-06 08:33] VITALS: BP 143/76
--- NOTE | 2021-12-06 10:36 | NUR ---
Pt. requested SSDI information. SW provided pt. with instructions on how to apply.
[2021-12-06] MEDS: LIDOCAINE 5% (PATCH) 1 EA PATCH TP SCH (13:45)
[2021-12-06] MEDS: CEFTRIAXONE 2 G in IV D5W 100 ML IV SCH (14:00)
[2021-12-06 15:57] VITALS: BP 137/71
[2021-12-06] MEDS: SIMETHICONE 80 MG TAB.CHEW PO PRN (18:45)
--- NOTE | 2021-12-06 19:20 | NUR ---
MS/RN OPENING NOTE RECEIVED PATIENT RESTING IN BED. AWAKE, ALERT AND ORIENTED X 4. ABLE TO MAKE NEEDS KNOWN. DENIES PAIN AT THIS TIME. CONTINUES ON ROOM AIR WITH NO S/SX OF RESPIRATORY DISTRESS NOTED. IV ACCESS TO LEFT UPPER ARM MIDLINE #18G INTACT AND PATENT. CONTINUES ON IVF NS @ 75ML/HR. CONTINUES ON IV ABX. CONTINUES ON SOFT DIET WITH PATIENT TOLERATING WELL. CALL LIGHT WITHIN REACH. ASPIRATION, FALL AND SAFETY PRECAUTIONS MAINTAINED. WILL CONTINUE TO MONITOR.
--- NOTE | 2021-12-06 19:22 | NUR ---
CHANGE OF SHIFT REPORT PT RESTING COMFORTABLY IN BED. NO S/S OR C/O PAIN OR DISTRESS NOTED. SIDE RAILS UP X2, CALL LIGHT LEFT WITHIN REACH. NO SIGNIFICANT CHANGES SINCE PREVIOUS SHIFT. WILL GIVE REPORT TO DERICK MARIN.
[2021-12-06 20:00] VITALS: BP 125/73
[2021-12-06] MEDS: ENOXAPARIN SODIUM 40 MG/0.4 ML DISP.SYRIN SQ SCH (20:26)
[2021-12-07] MEDS: KETOROLAC TROMETHAMINE INJ 30 MG/ML VIAL IV PRN ×3 (02:54→20:17)
--- NOTE | 2021-12-07 06:10 | NUR ---
MS/RN CLOSING NOTE PATIENT CURRENTLY SLEEPING IN BED. ALERT AND ORIENTED X 4. ABLE TO MAKE NEEDS KNOWN. DENIES PAIN AT THIS TIME. CONTINUES ON ROOM AIR WITH NO S/SX OF RESPIRATORY DISTRESS NOTED. IV ACCESS TO LEFT UPPER ARM MIDLINE #18G INTACT AND PATENT. CONTINUES ON IVF NS @ 75ML/HR. CONTINUES ON IV ABX. CONTINUES ON SOFT DIET WITH PATIENT TOLERATING WELL. CALL LIGHT WITHIN REACH. ASPIRATION, FALL AND SAFETY PRECAUTIONS MAINTAINED. WILL ENDORSE PLAN OF CARE TO ONCOMING SHIFT.
--- NOTE | 2021-12-07 07:25 | NUR ---
RN OPENING NOTES PATIENT AWAKE IN BED RESTING, A/O X4. NO S/S OF PAIN NOTED AT THIS TIME. ON ROOM AIR, NO DISTRESS OR SHORTNESS OF BREATH NOTED. IV ACCESS COURTNEY MIDLINE, INTACT, PATENT AND FLUSHING WELL. FALL AND SAFETY MEASURES IN PLACE, BED ALARM ON, BED IN LOW AND LOCK POSITION, CALL LIGHT AND TABLE WITHIN EASY REACH, SIDE RAILS UP X2. WILL CONTINUE TO MONITOR.
[2021-12-07 08:00] VITALS: BP 138/72
[2021-12-07] MEDS: PANTOPRAZOLE 40 MG TABLET.DR PO SCH (08:57)
[2021-12-07] MEDS: LIDOCAINE 5% (PATCH) 1 EA PATCH TP SCH (12:48)
[2021-12-07] MEDS: CEFTRIAXONE 2 G in IV D5W 100 ML IV SCH (12:48)
[2021-12-07] MEDS: MAG HYDROX/AL HYDROX/SIMETH 30 ML UDC PO PRN (14:25)
[2021-12-07] MEDS: ACETAMINOPHEN 325 MG TABLET PO PRN (15:45)
[2021-12-07 16:00] VITALS: BP 116/69
[2021-12-07] MEDS: SIMETHICONE 80 MG TAB.CHEW PO PRN (16:14)
[2021-12-07] MEDS: ONDANSETRON HCL/PF 4 MG/2 ML VIAL IVP PRN (18:15)
--- NOTE | 2021-12-07 19:14 | NUR ---
RN CLOSING NOTES PATIENT AWAKE IN BED RESTING, A/O X4. NO S/S OF PAIN NOTED AT THIS TIME. ON ROOM AIR, NO DISTRESS OR SHORTNESS OF BREATH NOTED. IV ACCESS COURTNEY MIDLINE, INTACT, PATENT AND FLUSHING WELL. FALL AND SAFETY MEASURES IN PLACE, BED ALARM ON, BED IN LOW AND LOCK POSITION, CALL LIGHT AND TABLE WITHIN EASY REACH, SIDE RAILS UP X2. WILL ENDORSE TO [employer] SQL DEVELOPER.
[2021-12-07 20:00] VITALS: BP 125/71
[2021-12-07] MEDS: ENOXAPARIN SODIUM 40 MG/0.4 ML DISP.SYRIN SQ SCH (20:24)
[2021-12-07] MEDS: IV NS 0.9% 1,000 ML IV PRN (20:25)
[2021-12-08] MEDS: KETOROLAC TROMETHAMINE INJ 30 MG/ML VIAL IV PRN ×3 (04:30→20:51)
--- NOTE | 2021-12-08 06:28 | NUR ---
MS/RN NOTE SPOKE WITH RADIOLOGY TO CONFIRM CT CHEST/ABDOMEN WITHOUT CONTRAST ORDER. RADIOLOGY STATES IT WILL BE DONE TODAY.
--- NOTE | 2021-12-08 07:26 | NUR ---
MS RN OPENING NOTES RECEIVED PATIENT IN BED, AWAKE, A/O X4, VERBALLY RESPONSIVE. NO SIGNS OF ACUTE DISTRESS NOTED. ON ROOM AIR, NO SOB NOTED. NO C/O PAIN OR DISCOMFORT AT THIS TIME. IV ACCESS ON COURTNEY MIDLINE #18G INTACT AND PATENT WITH NS @75ML RUNNING. ISOLATION PRECAUTION OBSERVED. SAFETY MEASURES IN PLACE. BED LOCKED AND IN LOWEST POSITION, SR UP X2, CALL LIGHT PLACED WITHIN EASY REACH. WILL CONTINUE TO MONITOR.
[2021-12-08] MEDS: PANTOPRAZOLE 40 MG TABLET.DR PO SCH (07:57)
[2021-12-08 08:00] VITALS: BP 129/76
[2021-12-08 08:08] LABS: BASOPHILS % (AUTO) 0.3 % (0.0-2.0); CALCIUM, SERUM 9.5 mg/dL (8.5-10.1); CREATININE 0.9 mg/dL (0.6-1.3); EOSINOPHILS % (AUTO) 1.9 % (0.0-6.0); HEMATOCRIT 38 % (33-45); HEMOGLOBIN 12.5 g/dL (11.5-14.8); LYMPHOCYTES # (AUTO) 2.4 K/uL (0.8-4.8); LYMPHOCYTES % (AUTO) 32.7 % (20.0-44.0); MAGNESIUM 2.4 mg/dL (1.8-2.4); MEAN CORPUSCULAR HGB CONC 33 g/dl (31.0-36.0); MEAN CORPUSCULAR VOLUME 92 fL (82-100); MONOCYTES # (AUTO) 0.7 K/uL (0.1-1.30); NEUTROPHILS % (AUTO) 55.1 % (43.0-81.0); PHOSPHORUS 2.6 mg/dL (2.5-4.9); PLATELET COUNT (AUTO) 343 K/uL (150-450); POTASSIUM 3.6 mmol/L (3.5-5.1); RED BLOOD CELL COUNT(AUTO) 4.15 MIL/uL (4.0-5.2); WHITE BLOOD COUNT (AUTO) 7.2 K/uL (4.3-11.0)
--- NOTE | 2021-12-08 09:38 | NUR ---
RN NOTES PATIENT PICKED-UP FOR CT SCAN OF CHEST/ABDOMEN.
--- NOTE | 2021-12-08 10:00 | NUR ---
RN NOTES PATINE BACK FROM CT SCAN.IN STABLE CONDITION.
[2021-12-08] MEDS: ONDANSETRON HCL/PF 4 MG/2 ML VIAL IVP PRN (11:26)
[2021-12-08] MEDS: LIDOCAINE 5% (PATCH) 1 EA PATCH TP SCH (11:26)
[2021-12-08] MEDS: CEFTRIAXONE 2 G in IV D5W 100 ML IV SCH (12:40)
[2021-12-08] MEDS: SIMETHICONE 80 MG TAB.CHEW PO PRN ×2 (18:46→20:51)
--- NOTE | 2021-12-08 18:53 | NUR ---
MS RN CLOSING NOTES PATIENT IN BED, AWAKE, A/O X4, VERBALLY RESPONSIVE. NO SIGNS OF ACUTE DISTRESS NOTED. REMAINS ON ROOM AIR, NO SOB NOTED. IV ACCESS ON COURTNEY MIDLINE #18G INTACT AND PATENT WITH NS @75ML RUNNING. ALL DUE MEDS GIVEN ORDERED. MEDICATED FOR PAIN NEEDED. ISOLATION PRECAUTION OBSERVED. SAFETY MEASURES IN PLACE. BED LOCKED AND IN LOWEST POSITION, SR UP X2, CALL LIGHT PLACED WITHIN EASY REACH. WILL ENDORSE TO NEXT SHIFT.
[2021-12-08 20:00] VITALS: BP 137/75
[2021-12-08] MEDS: MAG HYDROX/AL HYDROX/SIMETH 30 ML UDC PO PRN (20:50)
[2021-12-08] MEDS: ENOXAPARIN SODIUM 40 MG/0.4 ML DISP.SYRIN SQ SCH (20:52)
[2021-12-09] MEDS: KETOROLAC TROMETHAMINE INJ 30 MG/ML VIAL IV PRN ×3 (05:33→21:57)
[2021-12-09] MEDS: SIMETHICONE 80 MG TAB.CHEW PO PRN ×2 (05:33→13:10)
--- NOTE | 2021-12-09 06:32 | NUR ---
MS RN NOTES AWAKE & RESPONSIVE. NOT IN ANY DISTRESS. NO SOB NOTED. DENIES ANY PAIN OR DISCOMFORT AT THIS TIME. WITH IV-HL PATENT & INTACT. MONITORED ACCORDINGLY. CALL LIGHT WITHIN REACH. BED IN LOWEST POSITION. SR UP X 2 FOR SAFETY. WILL ENDORSE TO NEXT SHIFT.
[2021-12-09 06:53] LABS: BASOPHILS # (AUTO) 0.1 K/uL (0.0-0.2); BASOPHILS % (AUTO) 0.6 % (0.0-2.0); EOSINOPHILS % (AUTO) 1.1 % (0.0-6.0); HEMATOCRIT 37 % (33-45); HEMOGLOBIN 12.3 g/dL (11.5-14.8); LYMPHOCYTES % (AUTO) 20.1 % (20.0-44.0); MEAN CORPUSCULAR HGB CONC 34 g/dl (31.0-36.0); MEAN CORPUSCULAR VOLUME 92 fL (82-100); MONOCYTES # (AUTO) 0.9 K/uL (0.1-1.30); MONOCYTES % (AUTO) 9.6 % (2.0-12.0); NEUTROPHILS # (AUTO) 6.7 K/uL (1.8-8.9); NEUTROPHILS % (AUTO) 68.6 % (43.0-81.0); PLATELET COUNT (AUTO) 341 K/uL (150-450); RED BLOOD CELL COUNT(AUTO) 3.99 MIL/uL (4.0-5.2); WHITE BLOOD COUNT (AUTO) 9.8 K/uL (4.3-11.0)
[2021-12-09 06:56] LABS: CALCIUM, SERUM 8.7 mg/dL (8.5-10.1); CREATININE 0.9 mg/dL (0.6-1.3); MAGNESIUM 2.1 mg/dL (1.8-2.4); PHOSPHORUS 2.3 mg/dL (2.5-4.9); POTASSIUM 3.5 mmol/L (3.5-5.1)
--- NOTE | 2021-12-09 07:30 | NUR ---
ms rn received on bed, awake,alert,oriented x4,not in any form of distress, respirations even and unlabored,no sob noted, lungs are clear,abdomen soft,positive bowel sounds, bony pain at this time, s/p perianal surgery w/ drain, no output noted.will monitor patient's condition.
[2021-12-09 08:00] VITALS: BP 145/74
--- NOTE | 2021-12-09 09:30 | NUR ---
ms pelaez breakfast served,due meds given tolerated well.
[2021-12-09] MEDS ORDERED: K PHOS NEUTRAL 250 MG TABLET PO ONE (10:00)
[2021-12-09] MEDS: PANTOPRAZOLE 40 MG TABLET.DR PO SCH (10:20)
[2021-12-09] MEDS: LIDOCAINE 5% (PATCH) 1 EA PATCH TP SCH (13:04)
[2021-12-09] MEDS: CEFTRIAXONE 2 G in IV D5W 100 ML IV SCH (13:05)
[2021-12-09] MEDS: MAG HYDROX/AL HYDROX/SIMETH 30 ML UDC PO PRN (13:10)
--- NOTE | 2021-12-09 18:30 | NUR ---
ms rn om bed, no distress noted.
--- NOTE | 2021-12-09 19:35 | NUR ---
RN NOTES Received patient awake on her bed, a/ox4, ambulate with walker, denies pain at this time no SOB, call light within reach, siderailsupx2, with left flank accordion drainage-minimal output, call light within reach, siderailsupx2, will continue to monitor
[2021-12-09] MEDS: ENOXAPARIN SODIUM 40 MG/0.4 ML DISP.SYRIN SQ SCH (19:55)
[2021-12-09 20:00] VITALS: BP 128/80
--- NOTE | 2021-12-09 21:34 | NUR ---
RN NOTES SPOKE TO NED GONZALES-ALEXIS AND GO A N ORDER OF TORADOL 15MG IV PRN , ORDER NOTED AND CARRIED OUT
[2021-12-10 06:39] LABS: BASOPHILS % (AUTO) 0.7 % (0.0-2.0); EOSINOPHILS % (AUTO) 1.7 % (0.0-6.0); HEMATOCRIT 38 % (33-45); HEMOGLOBIN 12.4 g/dL (11.5-14.8); LYMPHOCYTES # (AUTO) 2.2 K/uL (0.8-4.8); LYMPHOCYTES % (AUTO) 33.1 % (20.0-44.0); MEAN CORPUSCULAR HGB CONC 33 g/dl (31.0-36.0); MEAN CORPUSCULAR VOLUME 90 fL (82-100); MONOCYTES # (AUTO) 0.7 K/uL (0.1-1.30); MONOCYTES % (AUTO) 10.2 % (2.0-12.0); NEUTROPHILS # (AUTO) 3.6 K/uL (1.8-8.9); NEUTROPHILS % (AUTO) 54.3 % (43.0-81.0); PLATELET COUNT (AUTO) 372 K/uL (150-450); RED BLOOD CELL COUNT(AUTO) 4.17 MIL/uL (4.0-5.2); WHITE BLOOD COUNT (AUTO) 6.6 K/uL (4.3-11.0)
--- NOTE | 2021-12-10 06:45 | NUR ---
RN NOTES AWAKE, MORNING CARE RENDERED, DENIES PAIN AT THIS TIME, NO SOB, CALL LIGHT WITHIN REACH, SIDERAILSUPX2, PT. NEEDS ATTENDED
[2021-12-10 07:26] LABS: CALCIUM, SERUM 9.1 mg/dL (8.5-10.1); CREATININE 0.9 mg/dL (0.6-1.3); MAGNESIUM 2.3 mg/dL (1.8-2.4); PHOSPHORUS 2.7 mg/dL (2.5-4.9); POTASSIUM 4.2 mmol/L (3.5-5.1)
--- NOTE | 2021-12-10 07:30 | NUR ---
MS RN OPENING NOTES RECEIVED PATIENT ON BED AWAKE AND A/O X4. ON ROOM AIR TOLERATING WELL. NO SOB NOTED. NOT IN DISTRESS. WITH NO COMPLAINTS OF PAIN OR DISCOMFORT AT THIS TIME. WITH IV ACCESS AT LEFT UPPER ARM MIDLINE WITH NS AT 75ML/HR INFUSING WELL. SAFETY MEASURES IN PLACED. CALL LIGHT WITHIN REACH. BED ON LOWEST LOCKED POSITION, SIDE RAILS UP X2. WILL CONTINUE TO MONITOR.
[2021-12-10] MEDS: PANTOPRAZOLE 40 MG TABLET.DR PO SCH (08:29)
[2021-12-10] MEDS: KETOROLAC TROMETHAMINE INJ 30 MG/ML VIAL IV PRN ×2 (09:53→18:11)
[2021-12-10] MEDS: LIDOCAINE 5% (PATCH) 1 EA PATCH TP SCH ×2 (11:39→17:58)
[2021-12-10] MEDS: CEFTRIAXONE 2 G in IV D5W 100 ML IV SCH (13:04)
[2021-12-10] MEDS: MAG HYDROX/AL HYDROX/SIMETH 30 ML UDC PO PRN (16:55)
[2021-12-10] MEDS: SIMETHICONE 80 MG TAB.CHEW PO PRN (18:12)
--- NOTE | 2021-12-10 18:23 | NUR ---
MS RN CLOSING NOTES PATIENT RESTING ON BED AND A/O X4. ON ROOM AIR TOLERATING WELL. NO SOB NOTED. NOT IN DISTRESS. WITH COMPLAINTS OF PAIN. COMFORT MEASURES GIVEN. TORADOL FOR PAIN GIVEN. WITH IV ACCESS AT LEFT UPPER ARM WITH IVF NS AT 75ML/HR INFUSING WELL. WITH ACCORDION DRAINAGE AT LEFT FLANK WITH 10CC OUTPUT. DUE MEDS GIVEN. SAFETY MEASURES IN PLACED. CALL LIGHT WITHIN REACH. BED ON LOWEST LOCKED POSITION, SIDE RAILS UP X2. WILL ENDORSE TO NEXT SHIFT FOR JUAN.
[2021-12-10] MEDS: IV NS 0.9% 1,000 ML IV PRN (19:05)
--- NOTE | 2021-12-10 19:30 | NUR ---
MS RN OPENING NOTE PATIENT AWAKE IN BED, ALERT/ORIENTED X 4, PT ABLE TO MAKE NEEDS KNOWN. NO COMPLAINTS OF PAIN OR DISCOMFORT AT THIS TIME. PT STABLE ON RA, NO S/S OF DISTRESS OR SOB NOTED, BREATHING EVEN AND UNLABORED. IV ACCESS ON COURTNEY MIDLINE INTACT AND RUNNING NS @ 75 ML/HR. LEFT FLANK DRAIN NOTED. SAFETY MEASURES IN PLACE: CALL LIGHT WITHIN REACH, SIDE RAILS UP X 2, BED LOCKED IN LOW POSITION, BED ALARM ON. WILL CONTINUE TO MONITOR PATIENT
[2021-12-10 20:00] VITALS: BP 120/66
[2021-12-10] MEDS: ENOXAPARIN SODIUM 40 MG/0.4 ML DISP.SYRIN SQ SCH (20:23)
[2021-12-11] MEDS: KETOROLAC TROMETHAMINE INJ 30 MG/ML VIAL IV PRN ×2 (03:44→11:53)
--- NOTE | 2021-12-11 07:22 | NUR ---
MS RN CLOSING NOTE PATIENT SLEEPING IN BED, ALERT/ORIENTED X 4, PT ABLE TO MAKE NEEDS KNOWN. NO SIGNIFICANT CHANGES THROUGHOUT SHIFT. PT STABLE ON RA, NO S/S OF DISTRESS OR SOB NOTED, BREATHING EVEN AND UNLABORED. COURTNEY MIDLINE RUNNING NS @ 75 ML/HR. LEFT FLANK ACCORDION DRAIN INTACT WITH MINIMAL OUTPUT. MEDICATIONS GIVEN ORDERED, PT NEEDS MET THROUGHOUT SHIFT. PATIENT AMBULATED TO BATHROOM WITH WALKER AND SBA ASSIST SEVERAL TIMES DURING SHIFT. SAFETY MEASURES IN PLACE: CALL LIGHT WITHIN REACH, SIDE RAILS UP X 2, BED LOCKED IN LOW POSITION. ENDORSED TO DAY SHIFT NURSE FOR CONTINUITY OF CARE
[2021-12-11] MEDS: PANTOPRAZOLE 40 MG TABLET.DR PO SCH (07:46)
--- NOTE | 2021-12-11 07:51 | NUR ---
RN Opening Note Patient received in bed, denies distress, able to responds all stimuli. Skin is warm to touch, keep clean/dry, intact IV site. Respiratory even and unlabored on room air. Kept elevated HOB for ensure airway/aspiration precaution and remains lower position of the bed. call light within reach, will continue to monitor.
[2021-12-11 08:00] VITALS: BP 136/73
[2021-12-11 08:10] LABS: BASOPHILS % (AUTO) 0.7 % (0.0-2.0); EOSINOPHILS % (AUTO) 2.3 % (0.0-6.0); HEMATOCRIT 37 % (33-45); HEMOGLOBIN 12.1 g/dL (11.5-14.8); LYMPHOCYTES # (AUTO) 1.9 K/uL (0.8-4.8); LYMPHOCYTES % (AUTO) 31.3 % (20.0-44.0); MEAN CORPUSCULAR HGB CONC 33 g/dl (31.0-36.0); MEAN CORPUSCULAR VOLUME 91 fL (82-100); MONOCYTES # (AUTO) 0.7 K/uL (0.1-1.30); MONOCYTES % (AUTO) 11.2 % (2.0-12.0); NEUTROPHILS # (AUTO) 3.2 K/uL (1.8-8.9); NEUTROPHILS % (AUTO) 54.5 % (43.0-81.0); PLATELET COUNT (AUTO) 367 K/uL (150-450); RED BLOOD CELL COUNT(AUTO) 4.08 MIL/uL (4.0-5.2); WHITE BLOOD COUNT (AUTO) 5.9 K/uL (4.3-11.0)
[2021-12-11 08:16] LABS: CALCIUM, SERUM 8.7 mg/dL (8.5-10.1); MAGNESIUM 2.3 mg/dL (1.8-2.4); PHOSPHORUS 2.6 mg/dL (2.5-4.9); POTASSIUM 4.2 mmol/L (3.5-5.1)
[2021-12-11] MEDS: LIDOCAINE 5% (PATCH) 1 EA PATCH TP SCH (13:02)
[2021-12-11] MEDS: CEFTRIAXONE 2 G in IV D5W 100 ML IV SCH (13:02)
[2021-12-11 16:00] VITALS: BP 137/82
--- NOTE | 2021-12-11 18:33 | NUR ---
RN Closing Note Patient is resting in bed, no distress observed. Respiratory even and unlabored on room air. Skin is warm to touch, keep clean/dry, intact midline site, and noticed percutaneous drainage approx. < 5cc. Kept elevated HOB for ensure airway and aspiration precaution, Also lower position of the bed for safety. Call light within reach, all needs met. will endorse assembler 1st shift.
--- NOTE | 2021-12-11 19:16 | NUR ---
RN Opening Note Patient is resting in bed, no distress observed. Respiratory even and unlabored on room air. Skin is warm to touch, keep clean/dry, intact midline site, and noticed percutaneous drainage approx. < 5cc. Kept elevated HOB for ensure airway and aspiration precaution, Also lower position of the bed for safety. Call light within reach, all needs met. will continue to monitor.
[2021-12-11 20:00] VITALS: BP 111/66
[2021-12-11] MEDS: KETOROLAC TROMETHAMINE 15 MG/ML VIAL IV PRN (20:25)
[2021-12-11] MEDS: ENOXAPARIN SODIUM 40 MG/0.4 ML DISP.SYRIN SQ SCH (20:26)
[2021-12-12 04:00] VITALS: BP 120/74
[2021-12-12 06:03] LABS: BASOPHILS # (AUTO) 0.1 K/uL (0.0-0.2); BASOPHILS % (AUTO) 0.9 % (0.0-2.0); EOSINOPHILS % (AUTO) 2.4 % (0.0-6.0); HEMATOCRIT 38 % (33-45); HEMOGLOBIN 12.5 g/dL (11.5-14.8); LYMPHOCYTES # (AUTO) 1.9 K/uL (0.8-4.8); LYMPHOCYTES % (AUTO) 31.4 % (20.0-44.0); MEAN CORPUSCULAR HGB CONC 33 g/dl (31.0-36.0); MEAN CORPUSCULAR VOLUME 91 fL (82-100); MONOCYTES # (AUTO) 0.7 K/uL (0.1-1.30); MONOCYTES % (AUTO) 11.8 % (2.0-12.0); NEUTROPHILS # (AUTO) 3.1 K/uL (1.8-8.9); NEUTROPHILS % (AUTO) 53.5 % (43.0-81.0); PLATELET COUNT (AUTO) 398 K/uL (150-450); WHITE BLOOD COUNT (AUTO) 5.9 K/uL (4.3-11.0)
[2021-12-12 06:13] LABS: CALCIUM, SERUM 9.2 mg/dL (8.5-10.1); MAGNESIUM 2.2 mg/dL (1.8-2.4); PHOSPHORUS 3.2 mg/dL (2.5-4.9); POTASSIUM 4.4 mmol/L (3.5-5.1)
--- NOTE | 2021-12-12 06:42 | NUR ---
RN closing Note Patient is resting in bed, no distress observed. Respiratory even and unlabored on room air. Skin is warm to touch, keep clean/dry, intact midline site, and noticed percutaneous drainage approx. 10cc. Kept elevated HOB for ensure airway and aspiration precaution, Also lower position of the bed for safety. Call light within reach, all needs met. will endorse crae to day shift nurse.
[2021-12-12] MEDS: KETOROLAC TROMETHAMINE 15 MG/ML VIAL IV PRN ×2 (07:46→20:37)
[2021-12-12] MEDS: PANTOPRAZOLE 40 MG TABLET.DR PO SCH (07:47)
--- NOTE | 2021-12-12 07:52 | NUR ---
MS RN OPENING NOTE Patient in bed, awake. A/O x 4, able to make needs known. On room air, breathing evenly and unlabored. No SOB or s/s of distress noted. IV access on COURTNEY midline #18G, intact and patent. Patient complained of generalized pain 7/10, PRN Toradol given. Safety precautions in place: bed in low, locked position; siderails up x 2; call light within reach. Will continue to monitor.
[2021-12-12 08:00] VITALS: BP 144/80
[2021-12-12] MEDS: LIDOCAINE 5% (PATCH) 1 EA PATCH TP SCH (12:54)
[2021-12-12] MEDS: CEFTRIAXONE 2 G in IV D5W 100 ML IV SCH (13:28)
[2021-12-12 16:00] VITALS: BP 115/73
--- NOTE | 2021-12-12 16:06 | NUR ---
RN NOTE Followed up with Dr. Johnson regarding patient's accordion drain, awaiting for response.
--- NOTE | 2021-12-12 19:21 | NUR ---
MS RN CLOSING NOTE Patient in bed, awake. A/O x 4, able to make needs known. On room air, breathing evenly and unlabored. No SOB or s/s of distress noted. IV access on COURTNEY midline #18G, intact and patent. Accordion drain in place on the Left flank with an output of 20 cc. All needs attended to. Due meds given. Safety precautions maintained: bed in low, locked position; siderails up x 2; call light within reach. Will endorse to sales development representative nurse for [facility].
[2021-12-12 20:00] VITALS: BP 133/71
[2021-12-12] MEDS ORDERED: KETOROLAC TROMETHAMINE INJ 30 MG/ML VIAL ONE (20:29)
[2021-12-12] MEDS: IV NS 0.9% 1,000 ML IV PRN (20:39)
[2021-12-12] MEDS: ENOXAPARIN SODIUM 40 MG/0.4 ML DISP.SYRIN SQ SCH (20:40)
[2021-12-13] MEDS: ACETAMINOPHEN 325 MG TABLET PO PRN ×2 (00:20→13:59)
--- NOTE | 2021-12-13 04:36 | NUR ---
RN notes In bed, resting comfortably with no distress noted. On room air tolerating well. Complaint of pain 06/22, toradol inj administered and tylenol 650mg given with relief. Alert and oriented x 4. Kept clean and dry. Will endorse to next shift for continuity of care.
[2021-12-13 06:04] LABS: BASOPHILS % (AUTO) 0.2 % (0.0-2.0); EOSINOPHILS % (AUTO) 2.1 % (0.0-6.0); HEMATOCRIT 38 % (33-45); HEMOGLOBIN 12.4 g/dL (11.5-14.8); LYMPHOCYTES # (AUTO) 1.7 K/uL (0.8-4.8); LYMPHOCYTES % (AUTO) 27.5 % (20.0-44.0); MEAN CORPUSCULAR HGB CONC 33 g/dl (31.0-36.0); MEAN CORPUSCULAR VOLUME 90 fL (82-100); MONOCYTES # (AUTO) 0.7 K/uL (0.1-1.30); MONOCYTES % (AUTO) 11.2 % (2.0-12.0); NEUTROPHILS # (AUTO) 3.6 K/uL (1.8-8.9); PLATELET COUNT (AUTO) 379 K/uL (150-450); WHITE BLOOD COUNT (AUTO) 6.2 K/uL (4.3-11.0)
--- NOTE | 2021-12-13 07:30 | NUR ---
MS RN OPENING NOTE Patient in bed, awake. A/O x 4, able to make needs known. On room air, breathing even and unlabored. No SOB or s/s of distress noted. IV access on COURTNEY midline #[id number], intact and patent. Safety precautions in place: bed in low, locked position; siderails up x 2; call light within reach. Will continue to monitor.
[2021-12-13] MEDS: PANTOPRAZOLE 40 MG TABLET.DR PO SCH (07:47)
[2021-12-13] MEDS: KETOROLAC TROMETHAMINE 15 MG/ML VIAL IV PRN (07:55)
[2021-12-13 08:00] VITALS: BP 140/79
[2021-12-13 08:21] LABS: CALCIUM, SERUM 9.8 mg/dL (8.5-10.1); PHOSPHORUS 3.4 mg/dL (2.5-4.9); POTASSIUM 4.4 mmol/L (3.5-5.1)
[2021-12-13 08:27] LABS: MAGNESIUM 2.2 mg/dL (1.8-2.4)
[2021-12-13] MEDS: LIDOCAINE 5% (PATCH) 1 EA PATCH TP SCH (12:20)
[2021-12-13] MEDS: CEFTRIAXONE 2 G in IV D5W 100 ML IV SCH (14:07)
[2021-12-13 16:00] VITALS: BP 132/75
--- NOTE | 2021-12-13 18:47 | NUR ---
MS RN CLOSING NOTE Patient in bed, awake. A/O x 4, able to make needs known. On room air, breathing even and unlabored. No SOB or s/s of distress noted. IV access on COURTNEY midline #18G, intact and patent.All due meds given as ordered. s/p of the renal tube removal. No bleeding noted. No discomfort noted at the site. Safety precautions in place: bed in low, locked position; siderails up x 2; call light within reach. will endorse incoming shift for shikha.
--- NOTE | 2021-12-13 19:15 | NUR ---
RN NOTE PT AWAKE/ALERT, ABLE TO VERBALIZE ALL NEEDS. SHE DENIES ANY PAIN AT THIS TIME. RESPIRATIONS EVEN/UNLABORED, ON ROOM AIR. IV SITE COURTNEY MIDLINE INTACT/PATENT, INFUSING NS @75ML/HR. PT ABLE TO AMBULATE WITH FWW WITH SLOW STEADY GAIT. PT IN NO ACUTE DISTRESS. SAFETY MEASURES IN PLACE. WILL CONT TO MONITOR.
[2021-12-13 20:00] VITALS: BP 130/79
[2021-12-13] MEDS: MAG HYDROX/AL HYDROX/SIMETH 30 ML UDC PO PRN (20:06)
[2021-12-13] MEDS: ENOXAPARIN SODIUM 40 MG/0.4 ML DISP.SYRIN SQ SCH (20:07)
[2021-12-14] MEDS: ACETAMINOPHEN 325 MG TABLET PO PRN (01:52)
[2021-12-14 04:00] VITALS: BP 125/61
--- NOTE | 2021-12-14 07:11 | NUR ---
RN NOTE Pt slept well during the night without any distress noted. Pt ambulates to BR using FWW with slow steady gait. All needs attended to. Safety measures maintained.
--- NOTE | 2021-12-14 07:30 | NUR ---
RN OPENING NOTES RECEIVED PATIENT IN BED AWAKE, ABLE TO VERBALIZE ALL NEEDS. SHE DENIES ANY PAIN AT THIS TIME. CHEST EXPANSION EQUAL DURING RESPIRATIONS WITH NO S/SX OF RESPIRATORY DISTRESS NOTED ON ROOM AIR. IV SITE COURTNEY MIDLINE INTACT AND PATENT, RUNNING NS @75ML/HR. PT ABLE TO AMBULATE WITH FWW, SLOW STEADY GAIT. NO PAIN VERBALIZED AT THIS TIME. SAFETY MEASURES IN PLACE: BED WHEELS LOCKED, BED IN LOWEST POSITION, SIDE RAILS UP X2, CALL LIGHT WITHIN REACH. WILL CONTINUE TO MONITOR PATIENT THROUGHOUT SHIFT.
[2021-12-14 08:00] VITALS: BP 142/68
[2021-12-14] MEDS: PANTOPRAZOLE 40 MG TABLET.DR PO SCH (08:30)
[2021-12-14] MEDS: KETOROLAC TROMETHAMINE INJ 30 MG/ML VIAL IV PRN ×2 (08:30→17:04)
[2021-12-14] MEDS: LIDOCAINE 5% (PATCH) 1 EA PATCH TP SCH (12:06)
[2021-12-14] MEDS ORDERED: PSEUDOEPHEDRINE HCL 30 MG TABLET PO PRN (12:30)
[2021-12-14] MEDS: CEFTRIAXONE 2 G in IV D5W 100 ML IV SCH (12:46)
[2021-12-14] MEDS ORDERED: DOCU-141 PO (14:05)
[2021-12-14] MEDS ORDERED: PSEU120T57 PO (14:05)
[2021-12-14] MEDS ORDERED: LEVO750T46 PO (14:05)
[2021-12-14 16:00] VITALS: BP 132/72
--- NOTE | 2021-12-14 18:10 | NUR ---
RN NOTES PATIENT MEDICALLY STABLE FOR DISCHARGE. PATIENT WAS EDUCATED ON DISCHARGE INSTRUCTIONS. PATIENT ABLE TO VERBALIZE UNDERSTANDING OF CURRENT HEALTH STATE AND SELF CARE. EXIT CARE PACKET WAS GIVEN TO PATIENT ALONG WITH MEDICAL RECORDS. ALL FORMS SIGNED AND BELONGINGS ACCOUNTED FOR. ID BAND AND ALL IV ACCESS LINES REMOVED. PATIENT WAS ACCOMPANIED BY [employer] SUPERINTENDENT DOWN TO FRONT LOBBY VIA WHEELCHAIR WHERE PATIENT WAS PICKED UP BY PRIVATE CAR.
== END 2021-12-14 18:10 | disposition home or self-care (01) | DRG 229 ==
LOC: ER 12:34 → TRANSITION 18:33 → TELE2 19:01 → MEDSG2 11-30 20:32
PROVIDERS: ADMIT Nurse Practitioner Acute Care; ATTEND Nurse Practitioner Family
PROC: 05HF33Z Insertion of Infusion Device into Left Cephalic Vein, Percutaneous Approach (ICD-10-PCS; principal; 2021-11-29)
PROC: 0W9J3ZX Drainage of Pelvic Cavity, Percutaneous Approach, Diagnostic (ICD-10-PCS; 2021-12-02)
DX: K57.80 Diverticulitis of intestine, part unspecified, with perforation and abscess without bleeding (principal); J12.82 Pneumonia due to coronavirus disease 2019; A69.20 Lyme disease, unspecified; U07.1 COVID-19; K52.9 Noninfective gastroenteritis and colitis, unspecified; N39.0 Urinary tract infection, site not specified; E87.6 Hypokalemia; Z87.01 Personal history of pneumonia (recurrent); N73.9 Female pelvic inflammatory disease, unspecified; J45.909 Unspecified asthma, uncomplicated; E66.9 Obesity, unspecified; K80.20 Calculus of gallbladder without cholecystitis without obstruction; Z98.890 Other specified postprocedural states; Z88.1 Allergy status to other antibiotic agents; Z88.5 Allergy status to narcotic agent; Z68.35 Body mass index [BMI] 35.0-35.9, adult; B96.20 Unspecified Escherichia coli [E. coli] as the cause of diseases classified elsewhere
CPT/HCPCS: 36410; 36415; 71045-TC; 71250-TC; 74018; 75989-TC; 80048-TC; 80076-TC; 81001; 82728-TC; 83605-TC; 83615-TC; 83690-TC; 83735-TC; 84100-TC; 84443-TC; 84484-TC; 85025-TC; 85378-TC; 85610-TC; 85730-TC; 86140-TC; 87040-TC; 87070-TC; 87081-TC; 87186-TC; 87806; C1757; C9113; C9803; G0378; J0696; J1650; J1885; J2250; J2310; J2405; J2543; J3480; J3490; J7030; J7060

== ENCOUNTER 2021-12-21 13:54 | Inpatient (IN) | payer OTHER ==
[~2021-12-21] VITALS: Ht 160 cm; Wt 88.5 kg
[~2021-12-21 13:54] MED LIST: ACET-868 PO; ASCO-352 PO; CHOL100062 PO; DOCU-141 PO; LEVO750T46 PO; MULT-447 PO; ONDA4TAB11 SL; PSEU120T57 PO; ZINC50TA65 PO
--- NOTE | 2021-12-21 14:07 | NUR ---
[id number] FOR ABD PAIN N/V & CONSTIPATION. PT HAD COLON PRODEDURE DONE HERE & DC'D 6 DAYS AGO. PT STARTED HER PAIN IS 4/10 AND SHE WAS NAUSEOUS EARLIER BUT NOT AT THE MOMENT. THE PAIN IS LOCATED ON HER L SIDE OF HER ADBOMEN AND STATED IT HAS INCREASED THE LAST 2 DAYS. VITAL ARE WITHIN NORMAL LIMITS. BREATHING IS EVEN AN UNLABORED. RAYMUNDO MCGEE.
[2021-12-21] MEDS ORDERED: ONDANSETRON HCL/PF 4 MG/2 ML VIAL ONE (14:44)
[2021-12-21] MEDS ORDERED: IV NS 0.9% 1,000 ML BAG IV ONE (15:00)
[2021-12-21] MEDS ORDERED: ONDANSETRON HCL/PF 4 MG/2 ML VIAL IVP ONE (15:00)
[2021-12-21 15:01] LABS: BASOPHILS % (AUTO) 0.4 % (0.0-2.0); EOSINOPHILS % (AUTO) 1.1 % (0.0-6.0); HEMATOCRIT 42 % (33-45); HEMOGLOBIN 13.6 g/dL (11.5-14.8); LYMPHOCYTES % (AUTO) 29.5 % (20.0-44.0); MEAN CORPUSCULAR HGB CONC 33 g/dl (31.0-36.0); MEAN CORPUSCULAR VOLUME 90 fL (82-100); MONOCYTES # (AUTO) 0.6 K/uL (0.1-1.30); MONOCYTES % (AUTO) 8.8 % (2.0-12.0); NEUTROPHILS # (AUTO) 4.2 K/uL (1.8-8.9); NEUTROPHILS % (AUTO) 60.2 % (43.0-81.0); PLATELET COUNT (AUTO) 296 K/uL (150-450); RED BLOOD CELL COUNT(AUTO) 4.67 MIL/uL (4.0-5.2); WHITE BLOOD COUNT (AUTO) 6.9 K/uL (4.3-11.0)
--- NOTE | 2021-12-21 15:12 | NUR ---
PT TAKEN TO CT
[2021-12-21 15:35] LABS: ALANINE AMINOTRANSFERASE 20 U/L (12-78); ALBUMIN 4.1 g/dL (3.4-5.0); ALKALINE PHOSPHATASE 109 U/L (46-116); ASPARTATE AMINOTRANSFERASE 16 U/L (15-37); BILIRUBIN,DIRECT 0.1 mg/dL (0.0-0.2); BILIRUBIN,TOTAL 0.3 mg/dL (0.2-1.0); CALCIUM, SERUM 9.8 mg/dL (8.5-10.1); CARBON DIOXIDE 26 mmol/L (21-32); CHLORIDE 106 mmol/L (98-107); CREATININE 0.9 mg/dL (0.6-1.3); GLUCOSE 103 mg/dL (74-106); LIPASE 64 U/L (73-393); POTASSIUM 3.9 mmol/L (3.5-5.1); SODIUM SERUM 141 mmol/L (136-145); TOTAL PROTEIN, SERUM 8.1 g/dL (6.4-8.2); UREA NITROGEN, BLOOD 10 mg/dL (7-18)
[2021-12-21] MEDS ORDERED: KETOROLAC TROMETHAMINE INJ 30 MG/ML VIAL IV ONE (16:00)
[2021-12-21] MEDS ORDERED: KETOROLAC TROMETHAMINE 15 MG/ML VIAL ONE (16:08)
[2021-12-21] MEDS ORDERED: LEVO750T46 PO (16:09)
[2021-12-21] MEDS ORDERED: DOCU-141 PO (16:09)
--- NOTE | 2021-12-21 16:20 | NUR ---
URINE COLLECTED AND SENT
[2021-12-21 17:21] LABS: BILIRUBIN,URINE NEGATIVE (NEGATIVE); COLOR,URINE YELLOW (YELLOW); LEUKOCYTE ESTERASE ,URINE SMALL (NEGATIVE); NITRITE, URINE NEGATIVE (NEGATIVE); PROTEIN,URINE NEGATIVE (NEGATIVE); UGLUCOSE NEGATIVE (NEGATIVE); UROBILINOGEN,URINE 0.2 EU/dL (0.2)
--- NOTE | 2021-12-21 17:23 | NUR ---
COVID TEST COLLECTED AND SENT
[2021-12-21 17:50] LABS: YEAST,URINE Moderate /HPF (None Seen)
[2021-12-21 17:51] LABS: RBC,URINE 0-2 /HPF (0-2)
[2021-12-21 17:52] LABS: BACTERIA,URINE Moderate /HPF (None Seen); SQUAMOUS EPITHELIAL CELL,UR Few /HPF (None Seen)
--- NOTE | 2021-12-21 20:53 | NUR ---
REPORT GIVEN TO TANIA YADAV
[2021-12-21] MEDS ORDERED: MORPHINE SULFATE INJ 2 MG/ML DISP.SYRIN IV PRN (21:00)
[2021-12-21] MEDS ORDERED: ACETAMINOPHEN 325 MG TABLET PO PRN (21:00)
[2021-12-21] MEDS ORDERED: HYDROCODONE/APAP 10/325MG TABLET PO PRN (21:00)
[2021-12-21] MEDS ORDERED: ONDANSETRON HCL/PF 4 MG/2 ML VIAL IVP PRN (21:00)
--- NOTE | 2021-12-21 21:35 | NUR ---
TRANSFERRED TO 315 IN STABLE CONDITION
[2021-12-21 21:38] VITALS: BP 116/71
--- NOTE | 2021-12-21 21:40 | NUR ---
RN ADMITTING NOTE PATIENT IS A/O X 4, ABLE TO MAKE NEEDS KNOWN. PATIENT IS BEING ADMITTED TO MED SURG FOR UTI. PATIENT IS ON RA , TOLERATING WELL. PATIENT IS 1 PERSON ASSIST FOR AMBULATION, PATIENT EXPRESSES PAIN ON L LEG AND THAT SHE USES A WALKER AT HOME. SHE HAS ABDOMINAL PAIN ON LLQ. PATIENT HAS A LAC 20G PATENT AND INTACT. PATIENT IS UNVACCINATED FOR COVID AND FLU, REFUSES BOTH VACCINATIONS. SKIN IS INTACT. BELONGINGS INVENTORIED, ORIENTED TO ROOM, TANIA BLANCO. SAFETY MEASURES IN PLACE: BED LOCKED AND IN LOWEST POSITION, CALL LIGHT WITHIN REACH, SIDE RAILS UP. WILL MONITOR PATIENT CLOSELY.
[2021-12-21] MEDS: CEFTRIAXONE 1 G in IV D5W 50 ML IV SCH (22:00)
[2021-12-21] MEDS: IV NS 0.9% 1,000 ML IV PRN (22:00)
[2021-12-21] MEDS: ENOXAPARIN SODIUM 40 MG/0.4 ML DISP.SYRIN SQ SCH (22:02)
[2021-12-21] MEDS: MAG HYDROX/AL HYDROX/SIMETH 30 ML UDC PO PRN (22:29)
[2021-12-21] MEDS: KETOROLAC TROMETHAMINE INJ 30 MG/ML VIAL IM PRN (22:30)
--- NOTE | 2021-12-21 22:30 | NUR ---
RN NOTE PATIENT GIVEN TORADOL IM 15 MG D/T ABDOMINAL PAIN AND MAALOX FOR DISCOMFORT/GAS.
[2021-12-22] MEDS: KETOROLAC TROMETHAMINE INJ 30 MG/ML VIAL IM PRN ×3 (05:38→21:59)
--- NOTE | 2021-12-22 05:38 | NUR ---
RN NOTE PATIENT GIVEN TORADOL 15 MG FOR ABD PAIN.
--- NOTE | 2021-12-22 06:48 | NUR ---
RN CLOSING NOTE PATIENT IS A/O X 4, ABLE TO MAKE NEEDS KNOWN. PATIENT IS ON RA , TOLERATING WELL. PATIENT IS 1 PERSON ASSIST FOR AMBULATION. SHE HAS ABDOMINAL PAIN ON LLQ THAT IS MANAGED WITH TORADOL IM. PATIENT HAS A LAC 20G PATENT AND INTACT, NS AT 75 ML/HR INFUSING WELL. SAFETY MEASURES IN PLACE: BED LOCKED AND IN LOWEST POSITION, CALL LIGHT WITHIN REACH, SIDE RAILS UP. ALL NEEDS MET AND ATTENDED, ALL ORDERS CARRIED OUT. WILL ENDORSE TO DAY SHIFT NURSE FOR JUAN
[2021-12-22 07:03] LABS: BASOPHILS % (AUTO) 0.4 % (0.0-2.0); EOSINOPHILS % (AUTO) 2.6 % (0.0-6.0); HEMATOCRIT 37 % (33-45); HEMOGLOBIN 12.3 g/dL (11.5-14.8); LYMPHOCYTES # (AUTO) 2.2 K/uL (0.8-4.8); LYMPHOCYTES % (AUTO) 41.4 % (20.0-44.0); MEAN CORPUSCULAR HGB CONC 33 g/dl (31.0-36.0); MEAN CORPUSCULAR VOLUME 90 fL (82-100); MONOCYTES # (AUTO) 0.6 K/uL (0.1-1.30); MONOCYTES % (AUTO) 11.3 % (2.0-12.0); NEUTROPHILS # (AUTO) 2.3 K/uL (1.8-8.9); NEUTROPHILS % (AUTO) 44.3 % (43.0-81.0); PLATELET COUNT (AUTO) 233 K/uL (150-450); RED BLOOD CELL COUNT(AUTO) 4.12 MIL/uL (4.0-5.2); WHITE BLOOD COUNT (AUTO) 5.3 K/uL (4.3-11.0)
[2021-12-22 07:35] LABS: CALCIUM, SERUM 9.3 mg/dL (8.5-10.1); CREATININE 0.9 mg/dL (0.6-1.3); MAGNESIUM 2.3 mg/dL (1.8-2.4); PHOSPHORUS 3.2 mg/dL (2.5-4.9); POTASSIUM 3.7 mmol/L (3.5-5.1)
[2021-12-22 08:00] VITALS: BP 115/58
--- NOTE | 2021-12-22 08:01 | NUR ---
RN Opening Note Patient received in bed AO x 4, no distress, able to responds all stimuli. Respiratory even and unlabored on room air. Skin is warm to touch, keep clean/dry, intact IV site. Kept elevated HOB for ensure airway/aspiration precaution and remain lower position of the bed for safety. call light within reach, will continue to monitor.
[2021-12-22] MEDS: FLUCONAZOLE (100 MG) 100 MG TABLET PO SCH (08:41)
[2021-12-22] MEDS ORDERED: SORBITOL SOLUTION 30 ML PO SCH (09:00)
[2021-12-22] MEDS ORDERED: LACTULOSE 10 G/15 ML UDC (PYXIS) PO SCH (09:00)
[2021-12-22] MEDS: MAGNESIUM HYDROXIDE 30 ML UDC PO PRN (12:56)
[2021-12-22 16:00] VITALS: BP 127/68
--- NOTE | 2021-12-22 17:22 | NUR ---
RN Closing Note Patient is resting in bed, no distress observed. Respiratory even and unlabored on room air. Skin is warm to touch, keep clean/dry, intact IV site. Kept elevated HOB for ensure airway and aspiration precaution. Also lower position of the bed for safety. No adverse reaction observed form antibiotics. Call light within reach, all needs met. 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
--- NOTE | 2021-12-22 19:22 | NUR ---
CONTINUITY OF CARE Patient in bed, awake AO x4. IVF infusing. Maintaining Oxygenation 97% on room air, denies SOB. Call light within reach. Will cont to provide care.
[2021-12-22 20:00] VITALS: BP 116/68
[2021-12-22] MEDS: CEFTRIAXONE 1 G in IV D5W 50 ML IV SCH (21:10)
[2021-12-22] MEDS: ENOXAPARIN SODIUM 40 MG/0.4 ML DISP.SYRIN SQ SCH (21:13)
--- NOTE | 2021-12-22 21:14 | NUR ---
ANTICOAGULANT H/H 12. PLT 233 No s/s of bleeding. Given Lovenox injection co-signed by TANIA Ashby.
[2021-12-22] MEDS: MAG HYDROX/AL HYDROX/SIMETH 30 ML UDC PO PRN (21:53)
[2021-12-22] MEDS: IV NS 0.9% 1,000 ML IV PRN (22:15)
--- NOTE | 2021-12-23 05:55 | NUR ---
END OF SHIFT REPORT Patient in bed, A/O x4. Maintaining Oxygenation high 90's on room air, denies SOB. IVF infusing. On IV abx. Afebrile on nightshift. Abdomen pain controlled by Toradol IM. No N/V. No acute events overnight. Independent with ADL's and mobility. Will endorse to oncoming RN.
--- NOTE | 2021-12-23 07:44 | NUR ---
RN Opening Note Patient received in bed AO x 4, no distress observed, able to responds all stimuli. Respiratory even and unlabored on room air. Skin is warm to touch, keep clean/dry, intact IV site. Kept elevated HOB for ensure airway/aspiration precaution and remain lower position of the bed for safety. call light within reach, will continue to monitor.
[2021-12-23 08:00] VITALS: BP 120/70
[2021-12-23] MEDS: FLUCONAZOLE (100 MG) 100 MG TABLET PO SCH (08:30)
[2021-12-23] MEDS: ALPRAZOLAM 0.25 MG TABLET PO PRN ×2 (10:01→21:22)
[2021-12-23] MEDS: KETOROLAC TROMETHAMINE INJ 30 MG/ML VIAL IM PRN ×2 (10:01→21:59)
[2021-12-23 16:00] VITALS: BP 140/74
--- NOTE | 2021-12-23 18:00 | NUR ---
RN Closing Note Patient is resting in bed, no distress observed. Respiratory even and unlabored on room air. Skin is warm to touch, keep clean/dry, intact IV site. Kept elevated HOB for ensure airway and aspiration precaution. Also lower position of the bed for safety. No adverse reaction observed form antibiotics. Call light within reach, all needs met. will endorse night cleaner.
--- NOTE | 2021-12-23 19:23 | NUR ---
MS RN OPENING NOTES RECEIVED PATIENT IN BED ALERT AND ORIENTED X4. NO S/SX OF ACUTE RESPIRATORY DISTRESS NOTED. NO SOB NOTED. ON ROOM AIR TOLERATING WELL. IV ACCESS ON LEFT ANTECUBITAL, PATENT AND INTACT. NS RUNNING @75ML/HR. DENIES PAIN OR DISCOMFORT AT THIS TIME. SAFETY PRECAUTIONS MAINTAINED. CALL LIGHT WITHIN REACH. WILL CONTINUE TO MONITOR THROUGHOUT THE SHIFT.
[2021-12-23 20:00] VITALS: BP 122/67
[2021-12-23 20:45] VITALS: BP 122/67
[2021-12-23] MEDS: ENOXAPARIN SODIUM 40 MG/0.4 ML DISP.SYRIN SQ SCH (20:58)
[2021-12-23] MEDS: CEFTRIAXONE 1 G in IV D5W 50 ML IV SCH (20:58)
[2021-12-23] MEDS: MAG HYDROX/AL HYDROX/SIMETH 30 ML UDC PO PRN (21:22)
[2021-12-24] MEDS: IV NS 0.9% 1,000 ML IV PRN (01:24)
--- NOTE | 2021-12-24 06:33 | NUR ---
MS RN CLOSING NOTES PATIENT IN BED ALERT AND ORIENTED X4. NO S/SX OF ACUTE RESPIRATORY DISTRESS NOTED. NO SOB NOTED. ON ROOM AIR TOLERATING WELL. IV ACCESS ON LEFT ANTECUBITAL, PATENT AND INTACT. NS RUNNING @75ML/HR. DENIES PAIN OR DISCOMFORT AT THIS TIME. SAFETY PRECAUTIONS MAINTAINED. CALL LIGHT WITHIN REACH. WILL ENDORSE TO ONCOMING SHIFT.
--- NOTE | 2021-12-24 07:54 | NUR ---
MS RN OPENING NOTES RECEIVED PATIENT IN BED, AWAKE, A/O X4. PATIENT ON ROOM AIR; BREATHING EVEN AND UNLABORED. NO COMPLAINS OF PAIN AT THIS TIME. IV ACCESS ON LAC G #20 PRESENT AND INTACT RUNNING NS @ 75 MLS/HR. SAFETY PRECAUTIONS IN PLACE; BED IN LOW POSITION AND LOCKED, RAILS UP X2, CALL LIGHT WITHIN REACH. WILL CONTINUE TO MONITOR PATIENT.
[2021-12-24 08:00] VITALS: BP 131/68
[2021-12-24] MEDS: FLUCONAZOLE (100 MG) 100 MG TABLET PO SCH (08:06)
[2021-12-24] MEDS: MAGNESIUM HYDROXIDE 30 ML UDC PO PRN (09:43)
[2021-12-24] MEDS: ALPRAZOLAM 0.25 MG TABLET PO PRN (09:44)
[2021-12-24] MEDS: KETOROLAC TROMETHAMINE INJ 30 MG/ML VIAL IM PRN ×2 (09:48→16:56)
[2021-12-24 16:13] VITALS: BP 108/72
[2021-12-24] MEDS ORDERED: SENN1TAB77 PO (16:31)
[2021-12-24] MEDS ORDERED: IBUP-1957 PO (16:31)
[2021-12-24] MEDS ORDERED: MECL-159 PO (16:31)
[2021-12-24] MEDS ORDERED: ONDA4TAB5 PO (16:31)
--- NOTE | 2021-12-24 17:00 | NUR ---
DISCHARGE NOTES PATIENT DISCHARGED HOME IN MEDICALLY STABLE CONDITION. PATIENT ABLE TO MAKE NEEDS KNOWN. ALL DISCHARGE PAPERWORK READY AND TEACHING PROVIDED TO PATIENT REGARDING DISCHARGE INSTRUCTIONS; PATIENT VERBALIZED UNDERSTANDING. BELONGINGS ACCOUNTED FOR AND PAPERWORK SIGNED BY PATIENT. MEDICATION PRESCRIPTION GIVEN TO PATIENT AND EXPLAINED MEDICATION INDICATION AND POSSIBLE SIDE EFFECTS. PATIENT VERBALIZED UNDERSTANDING. IV ACCESS REMOVED. PATIENT LEFT THE FLOOR ACCOMPANIED BY RN. LEFT THE HOSPITAL IN A LIFT.
== END 2021-12-24 17:00 | disposition home or self-care (01) | DRG 463 ==
LOC: ER 14:01 → TRANSITION 17:14 → MED 20:36
PROVIDERS: ADMIT Nurse Practitioner Acute Care; ATTEND Nurse Practitioner Acute Care
DX: B37.49 Other urogenital candidiasis (principal); R62.7 Adult failure to thrive; B96.20 Unspecified Escherichia coli [E. coli] as the cause of diseases classified elsewhere; Z86.19 Personal history of other infectious and parasitic diseases; Z86.16 Personal history of COVID-19; Z79.899 Other long term (current) drug therapy; Z87.19 Personal history of other diseases of the digestive system; K59.00 Constipation, unspecified; K80.20 Calculus of gallbladder without cholecystitis without obstruction; Z20.822 Contact with and (suspected) exposure to COVID-19
CPT/HCPCS: 36415; 80048-TC; 80061-TC; 80076-TC; 81001; 83605-TC; 83690-TC; 83735-TC; 84100-TC; 84484-TC; 85025-TC; 87040-TC; 87081-TC; 87086-TC; 97116-TC; 97530-TC; G0378; J0696; J1650; J1885; J2405; J7030; J7060

== ENCOUNTER 2022-01-08 17:09 | Emergency (ER) | payer OTHER ==
[~2022-01-08] VITALS: Ht 160 cm; Wt 81.6 kg
[~2022-01-08 17:09] MED LIST changes: -DOCU-141 PO; +IBUP-1957 PO; -LEVO750T46 PO; +MECL-159 PO; -ONDA4TAB11 SL; +ONDA4TAB5 PO; +SENN1TAB77 PO
--- NOTE | 2022-01-08 17:54 | NUR ---
pt biba c/o dirrhea and constipation x1wk, today pt noticed blood in the stool. pt is a/o x4,connected to monitor.
[2022-01-08] MEDS ORDERED: IV NS 0.9% 1,000 ML BAG IV ONE (18:30)
[2022-01-08] MEDS ORDERED: IV NS 0.9% 250 ML IV ONE (18:33)
[2022-01-08] MEDS ORDERED: IOHEXOL-300 100 ML VIAL IV ONE (18:33)
[2022-01-08 19:03] LABS: CALCIUM, SERUM 9.8 mg/dL (8.5-10.1); CREATININE 0.9 mg/dL (0.6-1.3); POTASSIUM 4.1 mmol/L (3.5-5.1)
[2022-01-08 19:09] LABS: ALBUMIN 4.2 g/dL (3.4-5.0); BILIRUBIN,DIRECT 0.1 mg/dL (0.0-0.2); BILIRUBIN,TOTAL 0.3 mg/dL (0.2-1.0)
[2022-01-08 19:21] LABS: BILIRUBIN,URINE NEGATIVE (NEGATIVE); COLOR,URINE YELLOW (YELLOW); LEUKOCYTE ESTERASE ,URINE SMALL (NEGATIVE); NITRITE, URINE NEGATIVE (NEGATIVE); PROTEIN,URINE NEGATIVE (NEGATIVE); UGLUCOSE NEGATIVE (NEGATIVE); UROBILINOGEN,URINE 0.2 EU/dL (0.2)
[2022-01-08 19:31] LABS: BACTERIA,URINE Few /HPF (None Seen); RBC,URINE 0-2 /HPF (0-2); SQUAMOUS EPITHELIAL CELL,UR Few /HPF (None Seen); WBC,URINE 0-2 /HPF (0-3)
[2022-01-08 19:42] LABS: BASOPHILS % (AUTO) 0.4 % (0.0-2.0); EOSINOPHILS % (AUTO) 1.5 % (0.0-6.0); HEMATOCRIT 42 % (33-45); HEMOGLOBIN 13.9 g/dL (11.5-14.8); LYMPHOCYTES # (AUTO) 2.2 K/uL (0.8-4.8); LYMPHOCYTES % (AUTO) 30.1 % (20.0-44.0); MEAN CORPUSCULAR HGB CONC 33 g/dl (31.0-36.0); MEAN CORPUSCULAR VOLUME 88 fL (82-100); MONOCYTES # (AUTO) 0.6 K/uL (0.1-1.30); MONOCYTES % (AUTO) 8.8 % (2.0-12.0); NEUTROPHILS # (AUTO) 4.3 K/uL (1.8-8.9); NEUTROPHILS % (AUTO) 59.2 % (43.0-81.0); PLATELET COUNT (AUTO) 235 K/uL (150-450); RED BLOOD CELL COUNT(AUTO) 4.77 MIL/uL (4.0-5.2); WHITE BLOOD COUNT (AUTO) 7.2 K/uL (4.3-11.0)
[2022-01-08] MEDS ORDERED: diphenhydrAMINE HCL 50 MG/ML VIAL ONE (19:49)
[2022-01-08] MEDS ORDERED: ONDANSETRON HCL/PF 4 MG/2 ML VIAL ONE (19:49)
[2022-01-08] MEDS ORDERED: ONDANSETRON HCL/PF 4 MG/2 ML VIAL IV ONE (20:00)
[2022-01-08] MEDS ORDERED: diphenhydrAMINE HCL 50 MG/ML VIAL IV ONE (20:00)
[2022-01-08 22:35] VITALS: BP 132/81
== END 2022-01-08 22:37 | disposition home or self-care (01) ==
LOC: ER 17:10
DX: R10.32 Left lower quadrant pain (principal); R50.9 Fever, unspecified; K92.1 Melena; Z98.890 Other specified postprocedural states; Z88.6 Allergy status to analgesic agent; Z88.1 Allergy status to other antibiotic agents; Z60.2 Problems related to living alone; Z79.899 Other long term (current) drug therapy
CPT/HCPCS: 36415; 74177; 80048; 80076; 81001; 83690; 85025; 85730; 86850; 87086; 96361; 96374; 96375; 99285; J1200; J2405; J7050; Q9967